=== PATIENT | male | born 1960 | race Caucasian/White ===

== ENCOUNTER 2017-04-07 14:34 | Inpatient (IN) | payer OTHER ==
[2017-04-07] VITALS (16 sets, daily range): BP systolic 70–129; BP diastolic 40–83; PULSE 40–81; RESP 16–20; TEMP 98–98.5; O2SAT 10–100
[~2017-04-07 14:34] MED LIST: CARV6.25 PO; COLL30OI3 TOP; COMMODE 3:1; LISI10 PO; NIFE1TAB85 PO; NORC10TA2 PO; PROT40TA PO; RIFA300C37 PO; SENN-29 PO; SHOWER/TUB CHAIR LG; WALKER ROLLING; WHEELCHAIR RENTAL; [UNRECOGNIZED DRUG - CODE] IV
[2017-04-07] MEDS ORDERED: ATROPINE SULFATE 1 MG/10 ML SYRINGE ONE (14:42)
[2017-04-07] MEDS ORDERED: ASPIRIN 81 MG CHEW TAB PO ONE (15:00)
[2017-04-07] MEDS ORDERED: SODIUM CHLORIDE 0.9% FLUSH 10 ML FLUSH IVF PRN (15:00)
[2017-04-07] MEDS ORDERED: SODIUM CHLOR 0.9% 1000 ML INJ 1,000 ML IV SCH (15:00)
[2017-04-07] MEDS ORDERED: LISI2.5T3 PO (15:01)
[2017-04-07] MEDS ORDERED: ASPI-110 PO (15:01)
--- NOTE | 2017-04-07 15:08 | RADRPT ---
EXAM DATE/TIME: 04/07/2017 14:59 [place] COMPARISON: CHEST SINGLE AP, March 16, 2016, 15:11. INDICATIONS : Chest pain. MEDICAL HISTORY : Sepsis SURGICAL HISTORY : None. ENCOUNTER: Initial ACUITY: 1 day PAIN SCORE: 7/10 LOCATION: Bilateral chest FINDINGS: Low lung volumes which accentuates the interstitial markings. No significant focal pleural or parench ymal opacities. Cardiomediastinal contours are within normal limits given the technique and lung volu mes. Remainder of exam is unchanged. CONCLUSION: 1. No acute cardiopulmonary disease. Chino Vaughn MD on April 07, 2017 at 15:05 Board Certified Radiologist. This report was verified electronically.
[2017-04-07] MEDS ORDERED: ATROPINE SULFATE 1 MG/10 ML SYRINGE IV PUSH ONE (15:15)
--- NOTE | 2017-04-07 15:23 | PD ---
HPI Chief Complaint: Chest Pain Time Seen by Provider: 14:45 Travel History International Travel<30 days: No Contact w/Intl Traveler<30days: No Traveled to known affect area: No History of Present Illness HPI 57-year-old man who presents to the emergency department complaining of chest pain, shortness of breath, lightheadedness, and near syncope. Patient has a history of high blood pressure. 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 He was in the NICU respiratory failure. He recovered at [facility]. He's done well since then. He's never had trouble with heart problems, CAD, or arrhythmia. He states that he was walking on the beach today when he started getting the onset of pressure-like cramping chest discomfort with lightheadedness near syncope and seeing spots. This started about an hour prior to arrival. describes very poor color and clamminess. He states he' s had 2 previous episodes in the past that resolved with rest. Prior to the onset of this episode he was feeling completely well and healthy. Denies any other new or worsening symptoms. No other complaints. 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, septic arthritis, status post cervical laminectomy an I&D of the left knee in February 2016 Influenza Vaccination: No Social History Alcohol Use: Yes (OCCASIONAL) Tobacco Use: No Allergies-Medications (Allergen,Severity, Reaction): Coded Allergies: No Known Allergies (Unverified , 04/07/17) Reported Meds & Prescriptions Reported Meds & Active Scripts Active Reported Aspirin 81 (Aspirin) 81 Mg Tabdr 81 Mg PO DAILY Lisinopril 2.5 Mg Tab 2.5 Mg PO DAILY Review of Systems Except as stated in HPI: all other systems reviewed are Neg Physical Exam Narrative GENERAL: Ill-appearing 57-year-old man, clammy pale diaphoretic HEAD: Atraumatic. Normocephalic. EYES: Pupils equal and round. No scleral icterus. No injection or drainage. ENT: No nasal bleeding or discharge. Mucous membranes pink and moist. NECK: Trachea midline. No JVD. CARDIOVASCULAR: Very slow rate, poorly audible heart sounds except occasional irregular gallop. RESPIRATORY: No accessory muscle use. Clear to auscultation. Breath sounds equal bilaterally. GASTROINTESTINAL: Abdomen soft, non-tender, nondistended. Hepatic and splenic margins not palpable. MUSCULOSKELETAL: No obvious deformities. Trace edema. NEUROLOGICAL: Awake and alert. No obvious cranial nerve deficits. Motor grossly within normal limits. Normal speech. PSYCHIATRIC: Appropriate mood and affect; insight and judgment normal. Data Data Last Documented VS Vital Signs Date Time Temp Pulse Resp B/P Pulse Ox O2 Delivery O2 Flow Rate FiO2 04/07/17 16:00 70 113/68 99 04/07/17 15:43 18 Nasal Cannula 2 04/07/17 14:40 98.0 Orders Atropine Inj (Atropine Inj) (04/07/17 14:42) Electrocardiogram (04/07/17 14:46) Ckmb (Isoenzyme) Profile (04/07/17 14:46) Complete Blood Count With Diff (04/07/17 14:46) Comprehensive Metabolic Panel (04/07/17 14:46) Magnesium (Mg) (04/07/17 14:46) Prothrombin Time / Inr (Pt) (04/07/17 14:46) Act Partial Throm Time (Ptt) (04/07/17 14:46) Troponin I (04/07/17 14:46) Chest, Single Ap (04/07/17 14:46) Ecg Monitoring (04/07/17 14:46) Bilateral Bp Monitoring (04/07/17 14:46) Iv Access Insert/Monitor (04/07/17 14:46) Oximetry (04/07/17 14:46) Oxygen Administration (04/07/17 14:46) Aspirin Chew (Aspirin Chew) (04/07/17 15:00) Sodium Chloride 0.9% Flush (Ns Flush) (04/07/17 15:00) Sodium Chlor 0.9% 1000 Ml Inj (Ns 1000 M (04/07/17 15:00) Ed Poc Ultrasound (04/07/17 ) Atropine Inj (Atropine Inj) (04/07/17 15:15) Admit Order (Ed Use Only) (04/07/17 16:40) Labs Laboratory Tests Test 04/07/17 15:35 White Blood Count 7.0 TH/MM3 Red Blood Count 4.49 MIL/MM3 Hemoglobin 14.9 GM/DL Hematocrit 42.9 % Mean Corpuscular Volume 95.5 FL Mean Corpuscular Hemoglobin 33.1 PG Mean Corpuscular Hemoglobin 34.6 % Concent Red Cell Distribution Width 12.1 % Platelet Count 146 TH/MM3 Mean Platelet Volume 8.1 FL Neutrophils (%) (Auto) 73.6 % Lymphocytes (%) (Auto) 15.2 % Monocytes (%) (Auto) 9.7 % Eosinophils (%) (Auto) 0.4 % Basophils (%) (Auto) 1.1 % Neutrophils # (Auto) 5.1 TH/MM3 Lymphocytes # (Auto) 1.1 TH/MM3 Monocytes # (Auto) 0.7 TH/MM3 Eosinophils # (Auto) 0.0 TH/MM3 Basophils # (Auto) 0.1 TH/MM3 CBC Comment DIFF FINAL Differential Comment Prothrombin Time 10.7 SEC Prothromb Time International 1.0 RATIO Ratio Activated Partial 27.8 SEC Thromboplast Time Sodium Level 144 MEQ/L Potassium Level 4.0 MEQ/L Chloride Level 110 MEQ/L Carbon Dioxide Level 25.6 MEQ/L Anion Gap 8 MEQ/L Blood Urea Nitrogen 18 MG/DL Creatinine 1.50 MG/DL Estimat Glomerular Filtration 48 ML/MIN Rate Random Glucose 111 MG/DL Calcium Level 8.5 MG/DL Magnesium Level 2.2 MG/DL Total Bilirubin 0.8 MG/DL Aspartate Amino Transf 23 U/L (AST/SGOT) Alanine Aminotransferase 30 U/L (ALT/SGPT) Alkaline Phosphatase 67 U/L Total Creatine Kinase 78 U/L Troponin I LESS THAN 0.02 NG/ML B-Type Natriuretic Peptide 30 PG/ML Total Protein 6.6 GM/DL Albumin 3.8 GM/DL [facility] Medical Decision Making Medical Screen Exam Complete: Yes Emergency Medical Condition: Yes Interpretation(s) My review of initial EKG: Sinus arrest with junctional escape rhythm at a rate of 48, QRS duration 113, no definite evidence of acute ischemia. My review of repeat EKG from 1500, status post 1 mg atropine: Normal sinus rhythm at a rate of 79, normal axis, normal intervals, no acute ischemia. Differential Diagnosis Bradycardia arrhythmia, electrolyte abnormality, cardiac dysfunction, infection , other Narrative Course Medical decision making INITIAL: Critical ill-appearing 57-year-old man presents to the emergency department with bradycardia, hypotension, ischemic chest pain as well as near syncope black spots in lightheadedness. EKG shows what appears to be sinus arrest with a junctional escape rhythm. Likely, patient responded quickly to 1 mg of atropine. His a history of hemochromatosis, as well as septic shock and critical illness about a year ago. He may have sick sinus syndrome. We'll monitor him in the emergency department. We'll check electrolytes. We'll plan on admission for cardiology evaluation. Critical Care Narrative Aggregate critical care time was 35 minutes. Time to perform other separately billable procedures was not included in the critical care time. My time did not include minutes spent treating any other patients simultaneously or on activities that did not directly contribute to the patient's treatment. The services I provided to this patient were to treat and/or prevent clinically significant deterioration that could result in: , hypotension, shock, respiratory failure, increased morbidity. I provided critical care services requiring my management, as noted below: Chart data review, documentation time, medication orders and management, vital sign assessments/reviewing monitor data, ordering and reviewing lab tests, ordering and interpreting/reviewing x-rays and diagnostic studies, care of the patient and discussion of the patient with the admitting physicians. Procedures Procedure Narrative Point of care ultrasound: Focused point of care ultrasound was performed by me to evaluate for etiology of hypotension. Focused examination of the heart reveals grossly normal ejection fraction without pericardial fluid. IVC appeared full without significant collapse. No AAA was seen. No intraperitoneal fluid was identified. Diagnosis Primary Impression: Symptomatic bradycardia Additional Impression: Junctional escape beats Admitting Information Admitting Physician Requests: Admit Maxim Villegas MD Apr 07, 2017 15:22
[2017-04-07 15:43] LABS: AUTOMATED NEUTROPHIL # 5.1 TH/MM3 (1.8-7.7); BASOPHIL # 0.1 TH/MM3 (0-0.2); BASOPHIL % 1.1 % (0.0-2.0); EOSINOPHIL % 0.4 % (0.0-4.0); HEMATOCRIT 42.9 % (39.0-51.0); HEMO FLAGS DIFF FINAL; LYMPH % 15.2 % (9.0-44.0); LYMPHOCYTE # 1.1 TH/MM3 (1.0-4.8); MEAN CELL VOLUME 95.5 FL (80.0-100.0); MEAN CORPUSCULAR HEMOGLOBIN 33.1 PG (27.0-34.0); MEAN CORPUSCULAR HGB CONC 34.6 % (32.0-36.0); MONO % 9.7 % (0.0-8.0); NEUT % 73.6 % (16.0-70.0); PLATELET COUNT 146 TH/MM3 (150-450); RED BLOOD COUNT 4.49 MIL/MM3 (4.50-5.90); RED CELL DISTRIBUTION WIDTH 12.1 % (11.6-17.2)
[2017-04-07 15:54] LABS: CHLORIDE 110 MEQ/L (98-107); SODIUM (NA) 144 MEQ/L (136-145)
[2017-04-07 15:58] LABS: ANION GAP 8 MEQ/L (5-15); BICARBONATE 25.6 MEQ/L (21.0-32.0); BLOOD UREA NITROGEN 18 MG/DL (7-18); MAGNESIUM 2.2 MG/DL (1.5-2.5)
[2017-04-07 16:00] LABS: APTT (PATIENT) 27.8 SEC (24.3-30.1); PROTHROMBIN TIME - PATIENT 10.7 SEC (9.8-11.6)
[2017-04-07 16:01] LABS: ALT (GPT) 30 U/L (12-78); AST (GOT) 23 U/L (15-37); GLOMERULAR FILTRATION RATE 48 ML/MIN (>89)
[2017-04-07 16:02] LABS: TOTAL BILIRUBIN ADULT 0.8 MG/DL (0.2-1.0)
[2017-04-07 16:04] LABS: ALKALINE PHOSPHATASE 67 U/L (45-117)
[2017-04-07 16:20] LABS: CREATINE KINASE 78 U/L (39-308)
--- NOTE | 2017-04-07 16:31 | PD ---
Physical Exam Date Seen by Provider: Apr 07, 2017 Time Seen by Provider: 16:26 Narrative This 57-year-old male had presented to the emergency department with complaint of chest pain and feeling lightheaded. He arrived with a pulse rate of 48 and blood pressure of 70/40. He was seen initially by Dr. rodgers and given atropine and fluids. He has had an excellentm response and now is feeling well without pain. His heart rate is now 80 and blood pressure 112 over 70. He has no history of heart disease. He did have a prolonged hospitalization a year ago with a spinal epidural abscess and a septic knee secondary to MRSA. There is no evidence of heart disease at the time of that admission. He does have a history of hemachromatosis. His only prescription medication is lisinopril for hypertension. Patient is feeling well now. Repeat EKG shows sinus rhythm without ST-T wave changes. His EKG on arrival did not show P waves. There is a narrow complex rhythm at a rate of 48. His troponin is normal. His electrolytes are normal. Creatinine is 1.5.. Data Data Last Documented VS Vital Signs Date Time Temp Pulse Resp B/P Pulse Ox O2 Delivery O2 Flow Rate FiO2 04/07/17 16:00 70 113/68 99 04/07/17 15:43 18 Nasal Cannula 2 04/07/17 14:40 98.0 Orders Atropine Inj (Atropine Inj) (04/07/17 14:42) Electrocardiogram (04/07/17 14:46) Ckmb (Isoenzyme) Profile (04/07/17 14:46) Complete Blood Count With Diff (04/07/17 14:46) Comprehensive Metabolic Panel (04/07/17 14:46) Magnesium (Mg) (04/07/17 14:46) Prothrombin Time / Inr (Pt) (04/07/17 14:46) Act Partial Throm Time (Ptt) (04/07/17 14:46) Troponin I (04/07/17 14:46) Chest, Single Ap (04/07/17 14:46) Ecg Monitoring (04/07/17 14:46) Bilateral Bp Monitoring (04/07/17 14:46) Iv Access Insert/Monitor (04/07/17 14:46) Oximetry (04/07/17 14:46) Oxygen Administration (04/07/17 14:46) Aspirin Chew (Aspirin Chew) (04/07/17 15:00) Sodium Chloride 0.9% Flush (Ns Flush) (04/07/17 15:00) Sodium Chlor 0.9% 1000 Ml Inj (Ns 1000 M (04/07/17 15:00) Ed Poc Ultrasound (04/07/17 ) Atropine Inj (Atropine Inj) (04/07/17 15:15) Admit Order (Ed Use Only) (04/07/17 16:40) Labs Laboratory Tests Test 04/07/17 15:35 White Blood Count 7.0 TH/MM3 Red Blood Count 4.49 MIL/MM3 Hemoglobin 14.9 GM/DL Hematocrit 42.9 % Mean Corpuscular Volume 95.5 FL Mean Corpuscular Hemoglobin 33.1 PG Mean Corpuscular Hemoglobin 34.6 % Concent Red Cell Distribution Width 12.1 % Platelet Count 146 TH/MM3 Mean Platelet Volume 8.1 FL Neutrophils (%) (Auto) 73.6 % Lymphocytes (%) (Auto) 15.2 % Monocytes (%) (Auto) 9.7 % Eosinophils (%) (Auto) 0.4 % Basophils (%) (Auto) 1.1 % Neutrophils # (Auto) 5.1 TH/MM3 Lymphocytes # (Auto) 1.1 TH/MM3 Monocytes # (Auto) 0.7 TH/MM3 Eosinophils # (Auto) 0.0 TH/MM3 Basophils # (Auto) 0.1 TH/MM3 CBC Comment DIFF FINAL Differential Comment Prothrombin Time 10.7 SEC Prothromb Time International 1.0 RATIO Ratio Activated Partial 27.8 SEC Thromboplast Time Sodium Level 144 MEQ/L Potassium Level 4.0 MEQ/L Chloride Level 110 MEQ/L Carbon Dioxide Level 25.6 MEQ/L Anion Gap 8 MEQ/L Blood Urea Nitrogen 18 MG/DL Creatinine 1.50 MG/DL Estimat Glomerular Filtration 48 ML/MIN Rate Random Glucose 111 MG/DL Calcium Level 8.5 MG/DL Magnesium Level 2.2 MG/DL Total Bilirubin 0.8 MG/DL Aspartate Amino Transf 23 U/L (AST/SGOT) Alanine Aminotransferase 30 U/L (ALT/SGPT) Alkaline Phosphatase 67 U/L Total Creatine Kinase 78 U/L Troponin I LESS THAN 0.02 NG/ML B-Type Natriuretic Peptide 30 PG/ML Total Protein 6.6 GM/DL Albumin 3.8 GM/DL [facility] Medical Record Reviewed: Yes Supervised Visit with DIPAK: No Differential Diagnosis Differential includes bradycardia, sinus arrest, hypotension Narrative Course After atropine the patient has been quite stable. He is awake and alert and is asymptomatic. Troponin is normal. His electrolytes are normal. Chest x-ray has been read as normal Diagnosis Primary Impression: Bradycardia Additional Impression: Chest pain Qualified Code: R07.9 - Chest pain, unspecified type Admitting Information Admitting Physician Requests: Admit Carlitos Estrada MD Apr 07, 2017 16:31
[2017-04-07] MEDS ORDERED: ACETAMINOPHEN 500 MG CPLT PO PRN (16:45)
[2017-04-07] MEDS ORDERED: ALPRAZolam 0.25 MG TAB PO PRN (16:45)
[2017-04-07] MEDS ORDERED: NITROGLYCERIN 0.4 MG SL 25 TABS/BTL SL PRN (16:45)
[2017-04-07] MEDS ORDERED: MORPHINE SULFATE 4 MG/ML INJ IV PRN (16:45)
[2017-04-07] MEDS ORDERED: SODIUM CHLORIDE 0.9% FLUSH 10 ML FLUSH IV FLUSH PRN (16:45)
[2017-04-07] MEDS ORDERED: ACETAMINOPHEN/HYDROcodone 325 MG/7.5 MG TAB PO PRN (16:45)
[2017-04-07] MEDS ORDERED: RESP: ALBUTEROL 2.5 MG/IPRATROPIUM 0.5 MG NEB (PRN) NEB (16:45)
[2017-04-07] MEDS: SODIUM CHLOR 0.9% 1000 ML INJ 1,000 ML IV SCH (17:17)
--- NOTE | 2017-04-07 17:46 | HHI.HP ---
[facility]Staff Admission Diagnosis BRADYCARDIA, CHEST PAIN Diagnoses: (1) Bradycardia (2) Chest pain (3) HTN (hypertension) Chief Complaint: Chest pain Travel History International Travel<30 Days: No Contact w/Intl Traveler <30 Da: No Traveled to Known Affected Are: No History of Present Illness 57 year-old male with a history of hemochromatosis, hypertension was brought to the ED for evaluation of an acute sudden onset of substernal chest pain 3 hours duration which started while patient was at the beach around 2:30 PM today and described as stabbing, pressure-like chest discomfort for without any radiation however associated with diaphoresis, nausea, lightheadedness and near syncopal episode and visual changes. ED, patient was found to be bradycardic which he was treated with atropine 1. He reports 2 prior episodes of similar chest pain with the most recent in mid-December however shorter duration and patient did not seek any medical attention at a time. His previous treadmill was normal and patient denies any prior history of cardiac disease. During my exam, patient chest discomfort for resolved. Review of Systems Except as stated in HPI: all other systems reviewed are Neg Past Family Social History Past Medical History Hemochromatosis Hypertension MSSA bacteremia 2015 Past Surgical History Cervical laminectomy and I/D of the left knee Reported Medications Aspirin 81 (Aspirin) 81 Mg Tabdr 81 Mg PO DAILY Lisinopril 2.5 Mg Tab 2.5 Mg PO DAILY Allergies: Coded Allergies: No Known Allergies (Unverified , 04/07/17) Family History Father had CVA Monitor had rheumatoid arthritis Social History Patient reports social alcohol however denies tobacco or easy drug intake Physical Exam Vital Signs Vital Signs Date Time Temp Pulse Resp B/P Pulse Ox O2 Delivery O2 Flow Rate FiO2 04/07/17 17:40 60 18 123/73 99 Room Air 04/07/17 17:38 60 99 Room Air 04/07/17 16:00 70 113/68 99 04/07/17 15:43 73 18 113/64 99 Nasal Cannula 2 04/07/17 15:24 76 04/07/17 15:07 79 18 121/59 98 Nasal Cannula 2 04/07/17 15:05 81 18 108/54 98 Nasal Cannula 2 04/07/17 14:54 76 18 99/56 99 Nasal Cannula 2 04/07/17 14:54 98 Nasal Cannula 2 04/07/17 14:50 46 85/54 04/07/17 14:45 48 18 70/50 04/07/17 14:40 98.0 40 18 70/40 98 04/07/17 14:40 40 18 98 Room Air Physical Exam GENERAL: This is a well-nourished, well-developed patient, in no apparent distress. SKIN: No rashes, ecchymoses or lesions. Cool and dry. HEAD: Atraumatic. Normocephalic. No temporal or scalp tenderness. EYES: Pupils equal round and reactive. Extraocular motions intact. No scleral icterus. No injection or drainage. ENT: Nose without bleeding, purulent drainage or septal hematoma. Throat without erythema, tonsillar hypertrophy or exudate. Uvula midline. Airway patent. NECK: Trachea midline. No JVD or lymphadenopathy. Supple, nontender, no meningeal signs. CARDIOVASCULAR: Regular rate and rhythm without murmurs, gallops, or rubs. RESPIRATORY: Clear to auscultation. Breath sounds equal bilaterally. No wheezes , rales, or rhonchi. GASTROINTESTINAL: Abdomen soft, non-tender, nondistended. No hepato-splenomegaly , or palpable masses. No guarding. MUSCULOSKELETAL: Extremities without clubbing, cyanosis, or edema. No joint tenderness, effusion, or edema noted. No calf tenderness. Negative Homans sign bilaterally. NEUROLOGICAL: Awake and alert. Cranial nerves II through XII intact. Motor and sensory grossly within normal limits. Five out of 5 muscle strength in all muscle groups. Normal speech. Laboratory Laboratory Tests Test 04/07/17 15:35 White Blood Count 7.0 Red Blood Count 4.49 Hemoglobin 14.9 Hematocrit 42.9 Mean Corpuscular Volume 95.5 Mean Corpuscular Hemoglobin 33.1 Mean Corpuscular Hemoglobin 34.6 Concent Red Cell Distribution Width 12.1 Platelet Count 146 Mean Platelet Volume 8.1 Neutrophils (%) (Auto) 73.6 Lymphocytes (%) (Auto) 15.2 Monocytes (%) (Auto) 9.7 Eosinophils (%) (Auto) 0.4 Basophils (%) (Auto) 1.1 Neutrophils # (Auto) 5.1 Lymphocytes # (Auto) 1.1 Monocytes # (Auto) 0.7 Eosinophils # (Auto) 0.0 Basophils # (Auto) 0.1 CBC Comment DIFF FINAL Differential Comment Prothrombin Time 10.7 Prothromb Time International 1.0 Ratio Activated Partial 27.8 Thromboplast Time Sodium Level 144 Potassium Level 4.0 Chloride Level 110 Carbon Dioxide Level 25.6 Anion Gap 8 Blood Urea Nitrogen 18 Creatinine 1.50 Estimat Glomerular Filtration 48 Rate Random Glucose 111 Calcium Level 8.5 Magnesium Level 2.2 Total Bilirubin 0.8 Aspartate Amino Transf 23 (AST/SGOT) Alanine Aminotransferase 30 (ALT/SGPT) Alkaline Phosphatase 67 Total Creatine Kinase 78 Troponin I LESS THAN 0.02 B-Type Natriuretic Peptide 30 Total Protein 6.6 Albumin 3.8 Result Diagram: 04/07/17 1535 04/07/17 1535 Imaging Last Impressions Chest X-Ray 04/07/17 1446 Signed Impressions: Service Date/Time: Friday, April 07, 2017 14:59 - CONCLUSION: 1. No acute cardiopulmonary disease. Chino Vaughn MD Assessment and Plan Problem List: (1) Chest pain ICD Code: R07.9 Status: Acute (2) Bradycardia ICD Code: R00.1 Status: Acute (3) Near syncope ICD Code: R55 Status: Acute (4) Thrombocytopenia ICD Code: D69.6 Status: Acute (5) Acute renal failure ICD Code: N17.9 Status: Acute (6) IFG (impaired fasting glucose) ICD Code: R73.01 Status: Acute (7) HTN (hypertension) ICD Code: I10 Status: Chronic Assessment and Plan 57-year-old man with Atypical chest pain Chest x-ray noted and review by me without any cardio pulmonary disease H&H stable in a patient with a history of hemochromatosis ACS rule out per protocol with serial cardiac enzyme and EKGs Cardiology consultation pending for evaluation for nuclear stress test Aspirin/Statin/beta asya contraindicated secondary to bradycardia/ nitroglycerin when necessary/morphine when necessary/Lovenox Check 2-D echo/lipid profile Bradycardia Episode of near sudden ? Status post treatment with atropine 1 Cardiology consultation pending and may need evaluation from [facility] ACS rule out as in above and continue with telemetry monitoring Check 2-D echo, BNP Near-syncope Treatment as in above as this appears to be a cardiac however will check EEG H&H stable in a patient with a history of hemochromatosis Mild Thrombocytopenia Continue to monitor platelet count Acute renal failure Prerenal likely secondary to dehydration Gentle IV fluid hydration and avoid all nephrotoxic drugs Monitor BUN/creatinine Mild IFG No known history of diabetes type 2, check hemoglobin A1c and treat accordingly Code Status Full code Discussed Condition With Patient, , ED physician Physician Certification 2 Midnight Certification Type: Admission for Inpatient Services Order for Inpatient Services The services are ordered in accordance with Medicare regulations or non- Medicare payer requirements, as applicable. In the case of services not specified as inpatient-only, they are appropriately provided as inpatient services in accordance with the 2-midnight benchmark. Estimated LOS (days): 2 days is the estimated time the patient will need to remain in the hospital, assuming treatment plan goals are met and no additional complications. Post-Hospital Plan: Not yet determined Problem Qualifiers (1) Chest pain: Qualified Code: R07.9 - Chest pain, unspecified type Tino Parkinson MD Apr 07, 2017 17:46
[2017-04-07] MEDS: FAMOTIDINE 20 MG TAB PO SCH (21:37)
[2017-04-07] MEDS: TEMAZEPAM 15 MG CAP PO PRN (21:37)
[2017-04-07] MEDS: SODIUM CHLORIDE 0.9% FLUSH 10 ML FLUSH IV FLUSH SCH (21:37)
[2017-04-07] MEDS: ATORVASTATIN 10 MG TAB PO SCH (21:37)
[2017-04-08] VITALS (27 sets, daily range): BP systolic 124–144; BP diastolic 68–86; PULSE 50–62; RESP 18; TEMP 98–98.7; O2SAT 99
[2017-04-08 02:59] LABS: CREATINE KINASE 63 U/L (39-308)
[2017-04-08 06:59] LABS: ALT (GPT) 42 U/L (12-78); ANION GAP 10 MEQ/L (5-15); AST (GOT) 30 U/L (15-37); BICARBONATE 22.7 MEQ/L (21.0-32.0); BLOOD UREA NITROGEN 17 MG/DL (7-18); CHLORIDE 111 MEQ/L (98-107); GLOMERULAR FILTRATION RATE 63 ML/MIN (>89); POTASSIUM 3.6 MEQ/L (3.5-5.1); SODIUM (NA) 144 MEQ/L (136-145)
[2017-04-08 07:03] LABS: ALKALINE PHOSPHATASE 77 U/L (45-117); HDL CHOLESTEROL 40.6 MG/DL (40.0-60.0); LDL CHOLESTEROL 90 MG/DL (0-99); TOTAL BILIRUBIN ADULT 0.5 MG/DL (0.2-1.0)
[2017-04-08 07:07] LABS: CREATINE KINASE 63 U/L (39-308)
[2017-04-08] MEDS ORDERED: ATENOLOL 25 MG TAB PO SCH (09:00)
[2017-04-08] MEDS: LISINOPRIL 5 MG TAB PO SCH (09:07)
[2017-04-08] MEDS: SODIUM CHLORIDE 0.9% FLUSH 10 ML FLUSH IV FLUSH SCH ×2 (09:07→20:51)
[2017-04-08] MEDS: ASPIRIN 81 MG CHEW TAB PO SCH (09:08)
[2017-04-08] MEDS: SODIUM CHLOR 0.9% 1000 ML INJ 1,000 ML IV SCH ×2 (09:08→21:36)
[2017-04-08] MEDS: FAMOTIDINE 20 MG TAB PO SCH ×2 (09:08→20:51)
--- NOTE | 2017-04-08 09:21 | HHI.PR ---
Subjective Remarks The patient was resting in bed comfortably. He said that his episode of chest pain lasted about 2 hours. He has had 2 other episodes earlier this year. He has not had a stress test recently. He said his blood pressure was really low yesterday and during an episode of chest pain months ago. Nursing was at the bedside. Objective Vitals Vital Signs Date Time Temp Pulse Resp B/P Pulse Ox O2 Delivery O2 Flow Rate FiO2 04/08/17 07:00 59 04/08/17 06:00 55 04/08/17 05:00 55 04/08/17 04:00 56 04/08/17 03:08 59 04/08/17 03:00 98.7 56 18 126/72 99 04/08/17 02:00 55 04/08/17 01:00 60 04/08/17 00:00 60 04/07/17 23:00 50 04/07/17 23:00 98.5 53 20 129/83 10 04/07/17 22:00 50 04/07/17 21:00 54 04/07/17 20:00 56 04/07/17 19:15 56 04/07/17 19:00 98.0 54 20 127/73 100 04/07/17 18:41 60 16 119/69 99 Room Air 04/07/17 17:40 60 18 123/73 99 Room Air 04/07/17 17:38 60 99 Room Air 04/07/17 16:00 70 113/68 99 04/07/17 15:43 73 18 113/64 99 Nasal Cannula 2 04/07/17 15:24 76 04/07/17 15:07 79 18 121/59 98 Nasal Cannula 2 04/07/17 15:05 81 18 108/54 98 Nasal Cannula 2 04/07/17 14:54 76 18 99/56 99 Nasal Cannula 2 04/07/17 14:54 98 Nasal Cannula 2 04/07/17 14:50 46 85/54 04/07/17 14:45 48 18 70/50 04/07/17 14:40 98.0 40 18 70/40 98 04/07/17 14:40 40 18 98 Room Air I/O 04/07/17 04/07/17 04/07/17 04/08/17 04/08/17 04/08/17 07:00 15:00 23:00 07:00 15:00 23:00 Intake Total 1163 ml Output Total 300 ml 250 ml Balance -300 ml 913 ml Intake Oral 480 ml IV Total 683 ml Output Urine Total 300 ml 250 ml # Voids 1 Result Diagram: 04/07/17 1535 04/08/17 0503 Imaging Last Impressions Chest X-Ray 04/07/17 1446 Signed Impressions: Service Date/Time: Friday, April 07, 2017 14:59 - CONCLUSION: 1. No acute cardiopulmonary disease. Chino Vaughn MD Objective Remarks GENERAL: This is a well-nourished, well-developed patient, in no apparent distress. SKIN: No rashes, ecchymoses or lesions. Cool and dry. HEAD: Atraumatic. Normocephalic. No temporal or scalp tenderness. EYES: Pupils equal round and reactive. Extraocular motions intact. No scleral icterus. No injection or drainage. ENT: Nose without bleeding, purulent drainage or septal hematoma. Throat without erythema, tonsillar hypertrophy or exudate. Uvula midline. Airway patent. NECK: Trachea midline. No JVD or lymphadenopathy. Supple, nontender, no meningeal signs. CARDIOVASCULAR: Bradycardic without murmurs, gallops, or rubs. RESPIRATORY: Clear to auscultation. Breath sounds equal bilaterally. No wheezes , rales, or rhonchi. GASTROINTESTINAL: Abdomen soft, non-tender, nondistended. No hepato-splenomegaly , or palpable masses. No guarding. MUSCULOSKELETAL: Extremities without clubbing, cyanosis, or edema. No joint tenderness, effusion, or edema noted. No calf tenderness. Negative Homans sign bilaterally. NEUROLOGICAL: Awake and alert. Cranial nerves II through XII intact. Motor and sensory grossly within normal limits. Five out of 5 muscle strength in all muscle groups. Normal speech. PSYCH: Mood and affect appropriate. Medications and IVs Current Medications Medications (Trade) Dose Ordered Sig/Kevan Route Start Time Stop Time Status Last Admin (NS Flush) 2 ml BID IV FLUSH 04/07/17 21:00 04/08/17 09:07 (NS Flush) 2 ml UNSCH PRN IV FLUSH 04/07/17 16:45 (Aspirin Chew) 162 mg DAILY PO 04/08/17 09:00 04/08/17 09:08 (Nitrostat Sl) 0.4 mg Q5M PRN SL 04/07/17 16:45 (Tylenol) 500 mg Q4H PRN PO 04/07/17 16:45 (Garner 7.5-325 Mg) 1 tab Q4H PRN PO 04/07/17 16:45 (Morphine Inj) 2 mg Q5M PRN IV 04/07/17 16:45 (Pepcid) 20 mg BID PO 04/07/17 21:00 04/08/17 09:08 (Restoril) 15 mg HS PRN PO 04/07/17 21:00 04/07/17 21:37 Alprazolam 0.25 mg 0.25 mg TID PRN PO 04/07/17 16:45 (NS 1000 ml Inj) 1,000 ml @ 70 mls/hr [id number] IV 04/07/17 17:00 04/08/17 09:08 (Lipitor) 10 mg HS PO 04/07/17 21:00 04/07/17 21:37 (Prinivil) 2.5 mg DAILY PO 04/08/17 09:00 04/08/17 09:07 A/P Problem List: (1) Chest pain ICD Code: R07.9 Status: Acute (2) Bradycardia ICD Code: R00.1 Status: Acute (3) Near syncope ICD Code: R55 Status: Acute (4) Thrombocytopenia ICD Code: D69.6 Status: Acute (5) Acute renal failure ICD Code: N17.9 Status: Acute (6) IFG (impaired fasting glucose) ICD Code: R73.01 Status: Acute (7) HTN (hypertension) ICD Code: I10 Status: Chronic Assessment and Plan Atypical chest pain Chest x-ray without any cardio pulmonary disease. Trops negative. EKG with sinus bradycardia. LDL is 90. - Cardiology consultation pending. - nitroglycerin when necessary/morphine when necessary. - Check 2-D echo. - consider stress test. Keep pt NPO until seen by cards. Bradycardia Status post treatment with atropine 1. - Cardiology consultation pending and may need evaluation from floor supervisor - echo. - telemetry. Near-syncope/ Hypotension This appears to be cardiac. He had significant hypotension on admission. Resolved with fluids and atropine. - IVFs. - check EEG. - orthostatics. - telemetry. Acute renal failure Prerenal likely secondary to dehydration. Improved with IVFs. - Gentle IV fluid hydration and avoid all nephrotoxic drugs. - Monitor BUN/creatinine. PPx: Lovenox Discharge Planning Awaiting clinical improvement Problem Qualifiers (1) Chest pain: Qualified Code: R07.9 - Chest pain, unspecified type Robles Huynh DO Apr 08, 2017 09:21
--- NOTE | 2017-04-08 11:55 | EKG ---
Date Performed: 04/07/2017 Time Performed: 14:41:10 PTAGE: 57 years EKG: Rhythm appears to be junctional rhythm MODERATE INTRAVENTRICULAR CONDUCTION DELAY ABNORMAL RHYTHM ECG NO PREVIOUS TRACING DOCTOR: Binh Webber Interpretating Date/Time 04/08/2017 11:53:33
--- NOTE | 2017-04-08 11:56 | EKG ---
Date Performed: 04/07/2017 Time Performed: 15:00:32 PTAGE: 57 years EKG: Sinus rhythm Compared to previous tracing, sinus rhythm has replaced junctional rhythm. NORMAL ECG PREVIOUS TRACING : 04/07/2017 14.41 DOCTOR: Binh Webber Interpretating Date/Time 04/08/2017 11:54:01
--- NOTE | 2017-04-08 11:56 | EKG ---
Date Performed: 04/08/2017 Time Performed: 03:48:00 PTAGE: 57 years EKG: Sinus bradycardia Since PREVIOUS TRACING , no significant change noted Normal ECG except for rate PREVIOUS TRACIN 04/07/2017 21.59 DOCTOR: Binh Webber Interpretating Date/Time 04/08/2017 11:54:36
--- NOTE | 2017-04-08 11:57 | EKG ---
Date Performed: 04/07/2017 Time Performed: 21:59:44 PTAGE: 57 years EKG: Sinus bradycardia Since PREVIOUS TRACING , no significant change noted Normal ECG except for rate PREVIOUS TRACIN 04/07/2017 15.00 DOCTOR: Binh Webber Interpretating Date/Time 04/08/2017 11:54:49
--- NOTE | 2017-04-08 12:51 | MB ---
cc: LEROY RIDER MD REASON FOR CONSULTATION Chest pain and bradycardia. HISTORY OF PRESENT ILLNESS The patient is a very pleasant 57-year-old gentleman with no prior cardiac history but who has had three episodes of epigastric chest discomfort over the last few weeks. Yesterday he was at the beats had some second-degree a and developed a more severe epigastric bubble which caused him to nearly blacked out his reports and looking cross / ashen. He was brought immediately to the emergency department where he was initially found to be in what appears to be a junctional rhythm in the 40s. He was given aspirin IV fluids which very quickly converted him to a normal sinus rhythm and brought to a sore and resolved his symptoms. He has been sinus rhythm since he is currently completely asymptomatic denying any residual chest discomfort, shortness of breath, lightheadedness, dizziness or other episodes of near syncope. PAST MEDICAL HISTORY: 1. 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 2. Hemochromatosis 3. Hypertension CURRENT MEDICATIONS 1. Aspirin once a mg daily. 2. Lisinopril 2.5 mg daily. 3. Pepcid. 4. Lipitor. ALLERGIES NO KNOWN DRUG ALLERGIES. PHYSICAL EXAMINATION VITAL SIGNS: Afebrile, pulse 59, respiratory rate 80, BP 126/72 satting 99%. IN GENERAL: In general a very pleasant well-appearing gentleman in no distress. NECK: No JVD. LUNGS: Clear auscultation bilaterally. CARDIOVASCULAR SYSTEM: Regular rhythm. No murmurs appreciated. ABDOMEN: Benign. EXTREMITIES: No edema. LABORATORY DATA Sodium 144, potassium 2.10, 111, 522.7, BUN 17, creatinine 1.18, glucose 79. Cardiac enzymes are negative x3. INR is 1.0, white count 7.0, hematocrit 42.9, platelets 146. A initial EKG showed a junctional bradycardia [address] or T-wave changes and current rhythm. Current5 telemetry and EKG shows sinus rhythm. IMPRESSION Atypical chest pain. The patient is quite active and exercises regularly and this does not elicit as chest discomfort. Thus I believe he is most likely experiencing some form of symptomatic bradycardia. However I am not yet certain that he has an indication for a pacemaker so I will plan on the followin. A nuclear stress test to exclude ischemia if significant ischemia seen he will require cardiac catheterization. 2. If his echocardiogram a nuclear stress tests are unrevealing I will plan for a loop recorder to better correlate his symptoms to any possible dysrhythmia. 3. He will be advised to stay well hydrated at all times as well. Further recommendations based on clinical course. Thank you again for opportunity to participate in this patient's care. MD DANIELLE Coker/jeremiah /10:23 AM /12:48 PM
--- NOTE | 2017-04-08 14:54 | ECHRPT ---
Indication: Chest pain, unspecified CONCLUSIONS Normal left ventricular size. Mild concentric left ventricular hypertrophy. The left ventricular systolic function is low normal with an estimated ejection fraction in the rang e of 50- 55%. No regional wall motion abnormalities are present. Left ventricular diastolic function parameters are normal. Structurally normal tricuspid valve. There is trace to normal estimated pulmonary pressures. mild tricuspid valve regurgitation. BP: 126 / 72 HR: 55 Rhythm: Sinus MEASUREMENTS (Male / Female) Normal Values Technical Quality:Poor 2D ECHO LV Diastolic Diameter PLAX 4.5 cm 4.2 - 5.9 / 3.9 - 5.3 cm LV Systolic Diameter PLAX 3.4 cm IVS Diastolic Thickness 1.1 cm 0.6 - 1.0 / 0.6 - 0.9 cm LVPW Diastolic Thickness 1.1 cm 0.6 - 1.0 / 0.6 - 0.9 cm LV Relative Wall Thickness 0.5 LVOT Diameter 2.5 cm Aortic Root Diameter 3.2 cm LA Systolic Diameter LX 3.0 cm 3.0 - 4.0 / 2.7 - 3.8 cm M-MODE AV Cusp Separation MM 2.6 cm DOPPLER AV Peak Velocity 167.0 cm/s AV Peak Gradient 11.2 mmHg AV Mean Gradient 5.0 mmHg AV Velocity Time Integral 32.5 cm LVOT Peak Velocity 79.7 cm/s LVOT Peak Gradient 2.5 mmHg LVOT Velocity Time Integral 18.3 cm LVOT Cardiac Index 2082.6 cm/minm AV Area Cont Eq vti 2.8 cm AV Area Cont Eq pk 2.3 cm Mitral E Point Velocity 93.3 cm/s Mitral A Point Velocity 73.1 cm/s Mitral E to A Ratio 1.3 LV E' Septal Velocity 8.6 cm/s Mitral E to LV E' Septal Ratio 10.9 TR Peak Velocity 252.0 cm/s TR Peak Gradient 25.4 mmHg PV Peak Velocity 69.9 cm/s PV Peak Gradient 2.0 mmHg FINDINGS LEFT VENTRICLE Normal left ventricular size. Mild concentric left ventricular hypertrophy. The left ventricular systolic function is low normal with an estimated ejection fraction in the rang e of 50- 55%. No regional wall motion abnormalities are present. Left ventricular diastolic function parameters are normal. RIGHT VENTRICLE Normal right ventricular size and systolic function. LEFT ATRIUM The left atrial size is normal. RIGHT ATRIUM The right atrial size is normal. ATRIAL SEPTUM Normal atrial septal thickness without atrial level shunting by limited color doppler interrogation. AORTA The aortic root and proximal ascending aorta are normal in size on limited imaging. MITRAL VALVE Structurally normal mitral valve. Trace mitral valve regurgitation. TRICUSPID VALVE Structurally normal tricuspid valve. There is trace to normal estimated pulmonary pressures. mild tricuspid valve regurgitation. PULMONARY VALVE No pulmonary valve regurgitation or stenosis. VESSELS The inferior vena cava is normal in size. There is greater than 50% respiratory change in dimension of the inferior vena cava (normal). PERICARDIUM There is no pericardial effusion. Jabier Gilbert MD (Electronically Signed) Final Date:08 April 2017 14:53
[2017-04-08] MEDS ORDERED: REGADENOSON INJ 0.4 MG/5 ML SYR ONE (16:17)
--- NOTE | 2017-04-08 18:26 | RADRPT ---
EXAM DATE/TIME: 04/08/2017 15:50 [facility] COMPARISON: No previous studies available for comparison. INDICATIONS : Chest pain. Angina. DOSE: 30.1 mCi Tc99m Myoview at stress. 10.3 mCi Tc99m Myoview at rest. 0.4 mg Lexiscan STRESS SYMPTOMS: Midsternal chest pain. EJECTION FRACTION: 48% MEDICAL HISTORY : Hypertension. SURGICAL HISTORY : Left knee. Cervical laminectomy. ENCOUNTER: Initial ACUITY: 1 day PAIN SCALE: 2/10 LOCATION: Bilateral chest TECHNIQUE: The patient underwent pharmacologic stress with infusion of prescribed dose. Continuous ECG tracing was monitored during stress. Gated SPECT imaging was performed after stress and conventional SPECT i maging was performed at rest. The examination was performed on a SPECT/CT scanner, both attenuation and non-corrected datasets were reviewed. FINDINGS: The gated cine loop images demonstrate mild global hypokinesis. Left ventricular ejection fraction i s calculated at 48%. The cardiac SPECT stress and rest images demonstrate a tiny fixed defect involving the cardiac apex s uggesting possible tiny LAD infarct. Clinical correlation is recommended. No reversible defects are noted to suggest ischemia. CONCLUSION: 1. Tiny focal fixed defect involving the cardiac apex suggesting small LAD infarct. Clinical correl ation is recommended. 2. Mild global hypokinesis with left ventricular ejection fraction equaling 48%. 3. No reversible defect to suggest ischemia. RISK CATEGORY: Low risk (Less than 1% annual mortality rate) Dashawn Miller MD on April 08, 2017 at 18:19 Board Certified Radiologist. This report was verified electronically.
[2017-04-08] MEDS: ATORVASTATIN 10 MG TAB PO SCH (20:51)
[2017-04-08] MEDS: TEMAZEPAM 15 MG CAP PO PRN (22:43)
[2017-04-09] VITALS (26 sets, daily range): BP systolic 130–154; BP diastolic 69–93; PULSE 49–83; RESP 18; TEMP 98.2–99.3; O2SAT 93–100
[2017-04-09 05:03] LABS: HEMATOCRIT 43.4 % (39.0-51.0); MEAN CELL VOLUME 96.4 FL (80.0-100.0); MEAN CORPUSCULAR HEMOGLOBIN 33.8 PG (27.0-34.0); MEAN CORPUSCULAR HGB CONC 35.1 % (32.0-36.0); PLATELET COUNT 141 TH/MM3 (150-450); RED CELL DISTRIBUTION WIDTH 13.3 % (11.6-17.2); REVIEW FLAG FINAL; WHITE BLOOD COUNT 5.1 TH/MM3 (4.0-11.0)
[2017-04-09 05:32] LABS: BICARBONATE 26.1 MEQ/L (21.0-32.0); MAGNESIUM 2.1 MG/DL (1.5-2.5)
[2017-04-09] MEDS: SODIUM CHLORIDE 0.9% FLUSH 10 ML FLUSH IV FLUSH SCH ×2 (09:00→20:14)
[2017-04-09] MEDS: ASPIRIN 81 MG CHEW TAB PO SCH (09:07)
[2017-04-09] MEDS: FAMOTIDINE 20 MG TAB PO SCH ×2 (09:07→20:16)
[2017-04-09] MEDS: LISINOPRIL 5 MG TAB PO SCH (09:07)
--- NOTE | 2017-04-09 09:46 | HHI.PR ---
Subjective Remarks The patient was feeling well. He had questions regarding the stress test and echocardiogram. He was wondering if his hospitalization last year but it had something to do with how his heart is acting. He has not had any lightheadedness or dizziness with ambulation. He denies any further chest pain. Breathing comfortably. Objective Vitals Vital Signs Date Time Temp Pulse Resp B/P Pulse Ox O2 Delivery O2 Flow Rate FiO2 04/09/17 06:00 56 04/09/17 05:00 52 04/09/17 04:00 52 04/09/17 03:28 98.2 57 18 130/75 98 04/09/17 03:00 52 04/09/17 02:00 56 04/09/17 01:00 56 04/09/17 00:00 52 04/08/17 23:10 98.0 53 18 139/86 99 04/08/17 23:00 54 04/08/17 22:00 56 04/08/17 21:00 56 04/08/17 20:00 56 04/08/17 19:50 98.0 62 18 144/84 99 04/08/17 19:00 50 04/08/17 18:00 62 04/08/17 17:00 61 04/08/17 16:00 62 04/08/17 16:00 98.4 56 18 138/82 99 04/08/17 15:00 51 04/08/17 14:00 55 04/08/17 13:00 55 04/08/17 12:00 98.2 56 18 124/68 99 04/08/17 12:00 56 04/08/17 11:00 56 04/08/17 10:00 56 I/O 04/08/17 04/08/17 04/08/17 04/09/17 04/09/17 04/09/17 07:00 15:00 23:00 07:00 15:00 23:00 Intake Total 1163 ml 830 ml 240 ml Output Total 250 ml 775 ml 1500 ml Balance 913 ml 55 ml -1260 ml Intake Oral 480 ml 120 ml 240 ml IV Total 683 ml 710 ml Output Urine Total 250 ml 775 ml 1500 ml # Bowel Movements 0 Result Diagram: 04/09/175 04/09/175 Imaging Last Impressions Myocardial Perfusion Scan Nuc Med 04/08/17 0000 Signed Impressions: Service Date/Time: Saturday, April 08, 2017 15:50 - CONCLUSION: 1. Tiny focal fixed defect involving the cardiac apex suggesting small LAD infarct. Clinical correlation is recommended. 2. Mild global hypokinesis with left ventricular ejection fraction equaling 48%%. 3. No reversible defect to suggest ischemia. RISK CATEGORY: Low risk (Less than 1%% annual mortality rate) Dashawn Miller MD Chest X-Ray 04/07/17 1446 Signed Impressions: Service Date/Time: Friday, April 07, 2017 14:59 - CONCLUSION: 1. No acute cardiopulmonary disease. Chino Vaughn MD Objective Remarks GENERAL: This is a well-nourished, well-developed patient, in no apparent distress. SKIN: No rashes, ecchymoses or lesions. Cool and dry. HEAD: Atraumatic. Normocephalic. No temporal or scalp tenderness. EYES: Pupils equal round and reactive. Extraocular motions intact. No scleral icterus. No injection or drainage. ENT: Nose without bleeding, purulent drainage or septal hematoma. Throat without erythema, tonsillar hypertrophy or exudate. Uvula midline. Airway patent. NECK: Trachea midline. No JVD or lymphadenopathy. Supple, nontender, no meningeal signs. CARDIOVASCULAR: Bradycardic without murmurs, gallops, or rubs. RESPIRATORY: Clear to auscultation. Breath sounds equal bilaterally. No wheezes , rales, or rhonchi. GASTROINTESTINAL: Abdomen soft, non-tender, nondistended. No hepato-splenomegaly , or palpable masses. No guarding. MUSCULOSKELETAL: Extremities without clubbing, cyanosis, or edema. No joint tenderness, effusion, or edema noted. No calf tenderness. Negative Homans sign bilaterally. NEUROLOGICAL: Awake and alert. Cranial nerves II through XII intact. Motor and sensory grossly within normal limits. Five out of 5 muscle strength in all muscle groups. Normal speech. PSYCH: Mood and affect appropriate. Medications and IVs Current Medications Medications (Trade) Dose Ordered Sig/Kevan Route Start Time Stop Time Status Last Admin (NS Flush) 2 ml BID IV FLUSH 04/07/17 21:00 04/08/17 20:51 (NS Flush) 2 ml UNSCH PRN IV FLUSH 04/07/17 16:45 (Aspirin Chew) 162 mg DAILY PO 04/08/17 09:00 04/09/17 09:07 (Nitrostat Sl) 0.4 mg Q5M PRN SL 04/07/17 16:45 (Tylenol) 500 mg Q4H PRN PO 04/07/17 16:45 (Holt 7.5-325 Mg) 1 tab Q4H PRN PO 04/07/17 16:45 (Morphine Inj) 2 mg Q5M PRN IV 04/07/17 16:45 (Pepcid) 20 mg BID PO 04/07/17 21:00 04/09/17 09:07 (Restoril) 15 mg HS PRN PO 04/07/17 21:00 04/08/17 22:43 Alprazolam 0.25 mg 0.25 mg TID PRN PO 04/07/17 16:45 (NS 1000 ml Inj) 1,000 ml @ 70 mls/hr [id number] IV 04/07/17 17:00 04/08/17 21:36 (Lipitor) 10 mg HS PO 04/07/17 21:00 04/08/17 20:51 (Prinivil) 2.5 mg DAILY PO 04/08/17 09:00 04/09/17 09:07 A/P Problem List: (1) Chest pain ICD Code: R07.9 Status: Acute (2) Bradycardia ICD Code: R00.1 Status: Acute (3) Near syncope ICD Code: R55 Status: Acute (4) Thrombocytopenia ICD Code: D69.6 Status: Acute (5) Acute renal failure ICD Code: N17.9 Status: Acute (6) IFG (impaired fasting glucose) ICD Code: R73.01 Status: Acute (7) HTN (hypertension) ICD Code: I10 Status: Chronic Assessment and Plan Atypical chest pain Chest x-ray without any cardio pulmonary disease. Trops negative. EKG with sinus bradycardia. LDL is 90. Resolved. Stress test negative for reversible defect. Echo with EF 50-55%. - nitroglycerin when necessary/morphine when necessary. - Check 2-D echo. - consider stress test. Keep pt NPO until seen by cards. Bradycardia Has had associated near-syncope. Status post treatment with atropine 1. HR stable in the 50s. Feeling well. Cardiology consult appreciated. - likely loop recorder to be placed per cardiology. - telemetry. Near-syncope/ Hypotension This appears to be cardiac. He had significant hypotension on admission. Resolved with fluids and atropine. - IVFs. - check EEG. - orthostatics. - telemetry. Acute renal failure Prerenal likely secondary to dehydration. Improved with IVFs. - Gentle IV fluid hydration and avoid all nephrotoxic drugs. - Monitor BUN/creatinine. Resolved. PPx: Lovenox Discharge Planning Awaiting cardiology clearance Problem Qualifiers (1) Chest pain: Qualified Code: R07.9 - Chest pain, unspecified type Robles Huynh DO Apr 09, 2017 09:46
--- NOTE | 2017-04-09 10:40 | PD.CARD.PN ---
Subjective Subjective Remarks Pt feels well, no sx. Objective Medications Administered Medications Medications (Trade) Dose Ordered Sig/Kevan Route PRN Reason Start Time Stop Time Status Last Admin Dose Admin Sodium Chloride (NS Flush) 2 ml BID IV FLUSH 04/07/17 21:00 04/08/17 20:51 Aspirin (Aspirin Chew) 162 mg DAILY PO 04/08/17 09:00 04/09/17 09:07 Famotidine (Pepcid) 20 mg BID PO 04/07/17 21:00 04/09/17 09:07 Temazepam (Restoril) 15 mg HS PRN PO INSOMNIA 04/07/17 21:00 04/08/17 22:43 Atorvastatin Calcium (Lipitor) 10 mg HS PO 04/07/17 21:00 04/08/17 20:51 Lisinopril (Prinivil) 2.5 mg DAILY PO 04/08/17 09:00 04/09/17 09:07 Vital Signs / I&O Vital Signs Date Time Temp Pulse Resp B/P Pulse Ox O2 Delivery O2 Flow Rate FiO2 04/09/17 06:00 56 04/09/17 05:00 52 04/09/17 04:00 52 04/09/17 03:28 98.2 57 18 130/75 98 04/09/17 03:00 52 04/09/17 02:00 56 04/09/17 01:00 56 04/09/17 00:00 52 04/08/17 23:10 98.0 53 18 139/86 99 04/08/17 23:00 54 04/08/17 22:00 56 04/08/17 21:00 56 04/08/17 20:00 56 04/08/17 19:50 98.0 62 18 144/84 99 04/08/17 19:00 50 04/08/17 18:00 62 04/08/17 17:00 61 04/08/17 16:00 62 04/08/17 16:00 98.4 56 18 138/82 99 04/08/17 15:00 51 04/08/17 14:00 55 04/08/17 13:00 55 04/08/17 12:00 98.2 56 18 124/68 99 04/08/17 12:00 56 04/08/17 11:00 56 I/O 04/08/17 04/08/17 04/08/17 04/09/17 04/09/17 04/09/17 07:00 15:00 23:00 07:00 15:00 23:00 Intake Total 1163 ml 830 ml 240 ml Output Total 250 ml 775 ml 1500 ml Balance 913 ml 55 ml -1260 ml Intake Oral 480 ml 120 ml 240 ml IV Total 683 ml 710 ml Output Urine Total 250 ml 775 ml 1500 ml # Bowel Movements 0 Physical Exam GENERAL: This is a well-nourished, well-developed patient, in no apparent distress. CARDIOVASCULAR: Regular rate and rhythm without murmurs, gallops, or rubs. RESPIRATORY: Clear to auscultation. Breath sounds equal bilaterally. No wheezes , rales, or rhonchi. GASTROINTESTINAL: Abdomen soft, non-tender, nondistended. Normal active bowel sounds MUSCULOSKELETAL: Extremities without clubbing, cyanosis, or edema. NEURO: Alert & Oriented x4 to person, place, time, situation. Moves all ext x4 Laboratory Laboratory Tests Test 04/09/17 03:15 White Blood Count 5.1 TH/MM3 Red Blood Count 4.50 MIL/MM3 Hemoglobin 15.2 GM/DL Hematocrit 43.4 % Mean Corpuscular Volume 96.4 FL Mean Corpuscular Hemoglobin 33.8 PG Mean Corpuscular Hemoglobin 35.1 % Concent Red Cell Distribution Width 13.3 % Platelet Count 141 TH/MM3 Mean Platelet Volume 9.1 FL Sodium Level 144 MEQ/L Potassium Level 4.0 MEQ/L Chloride Level 110 MEQ/L Carbon Dioxide Level 26.1 MEQ/L Anion Gap 8 MEQ/L Blood Urea Nitrogen 14 MG/DL Creatinine 1.09 MG/DL Estimat Glomerular Filtration 69 ML/MIN Rate Random Glucose 83 MG/DL Calcium Level 8.3 MG/DL Magnesium Level 2.1 MG/DL Imaging Last Impressions Myocardial Perfusion Scan Nuc Med 04/08/17 0000 Signed Impressions: Service Date/Time: Saturday, April 08, 2017 15:50 - CONCLUSION: 1. Tiny focal fixed defect involving the cardiac apex suggesting small LAD infarct. Clinical correlation is recommended. 2. Mild global hypokinesis with left ventricular ejection fraction equaling 48%%. 3. No reversible defect to suggest ischemia. RISK CATEGORY: Low risk (Less than 1%% annual mortality rate) Dashawn Miller MD Chest X-Ray 04/07/17 1446 Signed Impressions: Service Date/Time: Friday, April 07, 2017 14:59 - CONCLUSION: 1. No acute cardiopulmonary disease. Chino Vaughn MD Assessment and Plan Problem List: (1) Near syncope Assessment and Plan: Given ivana findings will plan for loop recorder to try to correlate with patient's sx (2) Symptomatic bradycardia (3) Junctional rhythm (4) Chest pain Assessment and Plan: none further, s/p non-ischemic nuc stress. Assessment and Plan plan for loop in the am Problem Qualifiers (1) Chest pain: Qualified Code: R07.9 - Chest pain, unspecified type Jabier Gilbert MD Apr 09, 2017 10:40
[2017-04-09 13:19] LABS: HEMOGLOBIN A1a 1.2 %; HEMOGLOBIN A1b 1.2 %; HEMOGLOBIN Ao 88.2 %; HEMOGLOBIN LA1C 1.6 %; HEMOGLOBIN P3 3.1 %
[2017-04-09] MEDS: ATORVASTATIN 10 MG TAB PO SCH (20:16)
[2017-04-09] MEDS: TEMAZEPAM 15 MG CAP PO PRN (22:40)
[2017-04-09] MEDS ORDERED: POVIDONE IODINE 5% (ANTISEPSIS KIT) 4 APPLICATIONS EACH NARE PRN (23:15)
[2017-04-09] MEDS ORDERED: LACTATED RINGER'S 1000 ML IV PRN (23:15)
[2017-04-09] MEDS ORDERED: CHLORHEXIDINE GLUCONATE 2 % 1 PACK (2 CLOTHS) TOPICAL PRN (23:15)
[2017-04-09] MEDS ORDERED: SODIUM CHLORID 0.9% 500 ML IV PRN (23:15)
[2017-04-09] MEDS ORDERED: INSULIN HUMAN REGULAR 1,000 UNITS/10 ML VIAL SQ PRN (23:15)
[2017-04-09] MEDS ORDERED: METOPROLOL TARTRATE 25 MG TAB PO PRN (23:15)
[2017-04-10] VITALS (14 sets, daily range): BP systolic 126–132; BP diastolic 76–80; PULSE 47–54; RESP 18; TEMP 97.3–98.2; O2SAT 98–100
[2017-04-10] MEDS ORDERED: ceFAZolin INJ 1,000 MG VIAL ONE (08:25)
[2017-04-10] MEDS ORDERED: MIDAZOLAM HCL 2 MG/2 ML VIAL ONE (08:25)
--- NOTE | 2017-04-10 08:54 | PD.CARD.PN ---
Subjective Subjective Remarks Pt has done well, no complaints. Objective Medications Administered Medications Medications (Trade) Dose Ordered Sig/Kevan Route PRN Reason Start Time Stop Time Status Last Admin Dose Admin Sodium Chloride (NS Flush) 2 ml BID IV FLUSH 04/07/17 21:00 04/08/17 20:51 Aspirin (Aspirin Chew) 162 mg DAILY PO 04/08/17 09:00 04/09/17 09:07 Famotidine (Pepcid) 20 mg BID PO 04/07/17 21:00 04/09/17 20:16 Temazepam (Restoril) 15 mg HS PRN PO INSOMNIA 04/07/17 21:00 04/09/17 22:40 Atorvastatin Calcium (Lipitor) 10 mg HS PO 04/07/17 21:00 04/09/17 20:16 Lisinopril (Prinivil) 2.5 mg DAILY PO 04/08/17 09:00 04/09/17 09:07 Vital Signs / I&O Vital Signs Date Time Temp Pulse Resp B/P Pulse Ox O2 Delivery O2 Flow Rate FiO2 04/10/17 06:03 47 04/10/17 05:14 49 04/10/17 04:07 49 04/10/17 03:37 49 04/10/17 03:00 97.3 53 130/76 98 04/10/17 02:20 52 04/10/17 01:00 52 04/10/17 00:00 50 04/09/17 23:31 56 04/09/17 23:14 98.3 56 152/88 97 04/09/17 22:00 52 04/09/17 21:00 54 04/09/17 20:00 54 04/09/17 19:00 58 04/09/17 19:00 99.0 57 154/87 100 04/09/17 18:00 60 04/09/17 17:00 62 04/09/17 16:00 56 04/09/17 15:34 99.3 83 18 152/86 93 04/09/17 15:00 50 04/09/17 13:00 50 04/09/17 12:00 98.9 53 18 142/82 100 137/83 144/93 04/09/17 12:00 56 04/09/17 11:00 58 04/09/17 10:00 52 04/09/17 09:00 54 I/O 04/09/17 04/09/17 04/09/17 04/10/17 04/10/17 04/10/17 07:00 15:00 23:00 07:00 15:00 23:00 Intake Total 240 ml 880 ml 240 ml Output Total 1500 ml 600 ml Balance -1260 ml 280 ml 240 ml Intake Oral 240 ml 480 ml 240 ml IV Total 400 ml Output Urine Total 1500 ml 600 ml # Voids 3 3 # Bowel Movements 1 Physical Exam GENERAL: This is a well-nourished, well-developed patient, in no apparent distress. CARDIOVASCULAR: Regular rate and rhythm without murmurs, gallops, or rubs. RESPIRATORY: Clear to auscultation. Breath sounds equal bilaterally. No wheezes , rales, or rhonchi. GASTROINTESTINAL: Abdomen soft, non-tender, nondistended. Normal active bowel sounds MUSCULOSKELETAL: Extremities without clubbing, cyanosis, or edema. NEURO: Alert & Oriented x4 to person, place, time, situation. Moves all ext x4 Imaging Last Impressions Myocardial Perfusion Scan Nuc Med 04/08/17 0000 Signed Impressions: Service Date/Time: Saturday, April 08, 2017 15:50 - CONCLUSION: 1. Tiny focal fixed defect involving the cardiac apex suggesting small LAD infarct. Clinical correlation is recommended. 2. Mild global hypokinesis with left ventricular ejection fraction equaling 48%%. 3. No reversible defect to suggest ischemia. RISK CATEGORY: Low risk (Less than 1%% annual mortality rate) Dashawn Miller MD Chest X-Ray 04/07/17 1446 Signed Impressions: Service Date/Time: Friday, April 07, 2017 14:59 - CONCLUSION: 1. No acute cardiopulmonary disease. Chino Vaughn MD Assessment and Plan Problem List: (1) Near syncope Assessment and Plan: Given ivana findings loop recorder placed to try to correlate with patient's sx (2) Symptomatic bradycardia (3) Junctional rhythm (4) Chest pain Assessment and Plan: none further, s/p non-ischemic nuc stress. Assessment and Plan ok to d/c home, f/u with me in the office. Problem Qualifiers (1) Chest pain: Qualified Code: R07.9 - Chest pain, unspecified type Jabier Gilbert MD Apr 10, 2017 08:54
[2017-04-10] MEDS: ASPIRIN 81 MG CHEW TAB PO SCH (10:47)
[2017-04-10] MEDS: LISINOPRIL 5 MG TAB PO SCH (10:48)
[2017-04-10] MEDS: FAMOTIDINE 20 MG TAB PO SCH (10:48)
--- NOTE | 2017-04-10 10:51 | MA ---
cc: JABIER GILBERT MD DATE: 04/10/2017 INDICATION Syncope and bradycardia. PERFORMING PHYSICIAN Dr. Jabier Gilbert PROCEDURES PERFORMED 1. 15 minutes of moderate IV sedation. 2. Loop recorder insertion. DESCRIPTION OF PROCEDURE After informed consent was obtained the patient was prepped and draped in a standard sterile technique. 4 mg of Versed and 50 mcg of fentanyl was used for moderate IV sedation. Next, a [employer] LINQ loop recorder was inserted subcutaneously to the left chest. The patient tolerated the procedure well without any apparent complications. The initial R-wave was 0.54 millivolts. Tachybrady pause and atrial fibrillation detection was enabled. The serial number was [id number]. Jabier Gilbert MD DANIELLE/BT /9:02 AM /10:51 AM
[2017-04-10] MEDS ORDERED: ASPI81CH25 PO (12:08)
[2017-04-10] MEDS ORDERED: LIPI10TA PO (12:08)
--- NOTE | 2017-04-10 12:10 | HHI.DS ---
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 ED, patient was found to be bradycardic which he was treated with atropine 1. He reports 2 prior episodes of similar chest pain with the most recent in mid-December however shorter duration and patient did not seek any medical attention at a time. His previous treadmill was normal and patient denies any prior history of cardiac disease. During my exam, patient chest discomfort for resolved. CBC/BMP: 04/09/17 0315 04/09/17 0315 Significant Findings Laboratory Tests Test 04/07/17 04/08/17 04/08/17 04/09/17 15:35 01:09 05:03 03:15 Red Blood Count 4.49 MIL/MM3 (4.50-5.90) Platelet Count 146 TH/MM3 141 TH/MM3 (150-450) (150-450) Neutrophils (%) (Auto) 73.6 % (16.0-70.0) Monocytes (%) (Auto) 9.7 % (0.0-8.0) Chloride Level 110 MEQ/L 111 MEQ/L 110 MEQ/L (98-107) (98-107) (98-107) Creatinine 1.50 MG/DL (0.60-1.30) Estimat Glomerular Filtration 48 ML/MIN (>89) 63 ML/MIN (>89) 69 ML/MIN (>89) Rate Random Glucose 111 MG/DL (74-106) Troponin I LESS THAN 0.02 LESS THAN 0.02 LESS THAN 0.02 NG/ML NG/ML NG/ML (0.02-0.05) (0.02-0.05) (0.02-0.05) Calcium Level 8.3 MG/DL 8.3 MG/DL (8.5-10.1) (8.5-10.1) Total Protein 6.3 GM/DL (6.4-8.2) Imaging Last Impressions Myocardial Perfusion Scan Nuc Med 04/08/17 0000 Signed Impressions: Service Date/Time: Saturday, April 08, 2017 15:50 - CONCLUSION: 1. Tiny focal fixed defect involving the cardiac apex suggesting small LAD infarct. Clinical correlation is recommended. 2. Mild global hypokinesis with left ventricular ejection fraction equaling 48%%. 3. No reversible defect to suggest ischemia. RISK CATEGORY: Low risk (Less than 1%% annual mortality rate) Dashawn Miller MD Chest X-Ray 04/07/17 1446 Signed Impressions: Service Date/Time: Friday, April 07, 2017 14:59 - CONCLUSION: 1. No acute cardiopulmonary disease. Chino Vaughn MD PE at Discharge GENERAL: This is a well-nourished, well-developed patient, in no apparent distress. SKIN: No rashes, ecchymoses or lesions. Cool and dry. HEAD: Atraumatic. Normocephalic. No temporal or scalp tenderness. EYES: Pupils equal round and reactive. Extraocular motions intact. No scleral icterus. No injection or drainage. ENT: Nose without bleeding, purulent drainage or septal hematoma. Throat without erythema, tonsillar hypertrophy or exudate. Uvula midline. Airway patent. NECK: Trachea midline. No JVD or lymphadenopathy. Supple, nontender, no meningeal signs. CARDIOVASCULAR: Bradycardic without murmurs, gallops, or rubs. RESPIRATORY: Clear to auscultation. Breath sounds equal bilaterally. No wheezes , rales, or rhonchi. GASTROINTESTINAL: Abdomen soft, non-tender, nondistended. No hepato-splenomegaly , or palpable masses. No guarding. MUSCULOSKELETAL: Extremities without clubbing, cyanosis, or edema. No joint tenderness, effusion, or edema noted. No calf tenderness. Negative Homans sign bilaterally. NEUROLOGICAL: Awake and alert. Cranial nerves II through XII intact. Motor and sensory grossly within normal limits. Five out of 5 muscle strength in all muscle groups. Normal speech. PSYCH: Mood and affect appropriate. Hospital Course Atypical chest pain Chest x-ray without any cardio pulmonary disease. Trops negative. EKG with sinus bradycardia. LDL is 90. Resolved. Stress test negative for reversible defect. Echo with EF 50-55%. - nitroglycerin when necessary/morphine when necessary. - Check 2-D echo. - consider stress test. Keep pt NPO until seen by cards. Bradycardia Has had associated near-syncope. Status post treatment with atropine 1. HR stable in the 50s. Feeling well. Cardiology consult appreciated. - likely loop recorder to be placed per cardiology. - telemetry. Near-syncope/ Hypotension This appears to be cardiac. He had significant hypotension on admission. Resolved with fluids and atropine. - IVFs. - check EEG. - orthostatics. - telemetry. Acute renal failure Prerenal likely secondary to dehydration. Improved with IVFs. - Gentle IV fluid hydration and avoid all nephrotoxic drugs. - Monitor BUN/creatinine. Resolved. PPx: Lovenox Pt Condition on Discharge: Stable Discharge Disposition: Discharge Home Discharge Instructions DIET: Follow Instructions for: Heart Healthy Diet Activities you can perform: See Additionl Instruction Other Activity Instructions: as directed by Welfare Visitor. Bhakti Grimaldo MD Apr 10, 2017 12:10
--- NOTE | 2017-04-10 12:10 | HHI.DCPOC ---
Discharge Care Plan Diagnosis: (1) Tachy-ivana syndrome Goals to Promote Your Health * To prevent worsening of your condition and complications * To maintain your health at the optimal level Directions to Meet Your Goals Take your medications as prescribed Follow your dietary instruction Follow activity as directed Keep your appointments as scheduled Take your immunizations and boosters as scheduled If your symptoms worsen call your PCP, if no PCP go to Urgent Care Center or Emergency Room Smoking is Dangerous to Your Health. Avoid second hand smoke Call the 24-hour hour crisis hotline for domestic abuse at Bhakti Grimaldo MD Apr 10, 2017 12:10
--- NOTE | 2017-04-11 09:55 | MG ---
cc: KARRIE WILLAMS M.D., ERIC Lab No: Date:04/10/2017 Age: 57 Sex: M Race: An EEG was obtained on this 57-year-old patient being awake and asleep. History of syncope and chest pain. PROCEDURE: This EEG shows a lot of 10 per second alpha rhythms posteriorly. There is low amplitude beta rhythms frontally. Throughout the study there is some higher amplitude background rhythms on the left than right with possible more of the slower activity on the left more than right. There is awake and asleep. There is some theta activity and there is no change with his photic stimulation. INTERPRETATION Abnormal EEG because of mild slowing, questionably left more than right. This EEG raise the possibility of left hemisphere structural abnormality. No epileptiform features present. MD RAIJV Anaya/ /8:55 PM /9:55 AM
== END 2017-04-10 12:55 | disposition home or self-care (01) | DRG 261 ==
LOC: PHED 14:34 → PHEDA 16:42 → HCIN 19:45
PROVIDERS: ADMIT Family Medicine; ATTEND Family Medicine
PROC: 0JH632Z Insertion of Monitoring Device into Chest Subcutaneous Tissue and Fascia, Percutaneous Approach (ICD-10-PCS; principal; 2017-04-10)
DX: R00.1 Bradycardia, unspecified (principal); N17.9 Acute kidney failure, unspecified; D69.6 Thrombocytopenia, unspecified; I10 Essential (primary) hypertension; E86.0 Dehydration; R55 Syncope and collapse; R73.01 Impaired fasting glucose; R07.89 Other chest pain
CPT/HCPCS: 33282; 71010; 78452; 80048; 80053; 80061; 82550; 83036; 83735; 83880; 84484; 85025; 85027; 85610; 85730; 93005; 93017; 93306; 95819; A9502; C1764; J0461; J0690; J2250; J2785; J3010; J7030

== ENCOUNTER 2017-04-10 14:36 | Emergency (ER) | payer OTHER ==
[~2017-04-10 14:36] MED LIST changes: +ASPI-110 PO; +ASPI81CH25 PO; -CARV6.25 PO; -COLL30OI3 TOP; -COMMODE 3:1; +LIPI10TA PO; -LISI10 PO; +LISI2.5T3 PO; -NIFE1TAB85 PO; -NORC10TA2 PO; -PROT40TA PO; -RIFA300C37 PO; -SENN-29 PO; -SHOWER/TUB CHAIR LG; -WALKER ROLLING; -WHEELCHAIR RENTAL; -[UNRECOGNIZED DRUG - CODE] IV
[2017-04-10 14:41] VITALS: BP 137/75; PULSE 62; RESP 18; TEMP 97.6; O2SAT 100
[2017-04-10] MEDS ORDERED: LIDOCAINE 1%/EPINEPHrine 1:100,000 SOLN 20 ML VIAL INFIL ONE (14:45)
--- NOTE | 2017-04-10 15:07 | PD ---
HPI Chief Complaint: Bleeding Time Seen by Provider: 14:44 Travel History International Travel<30 days: No Contact w/Intl Traveler<30days: No Traveled to known affect area: No History of Present Illness HPI 57-year-old male presents to the ED for evaluation of bleeding. Patient underwent insertion of a loop recorder secondary to bradycardia this morning. Discharged from the hospital around 1 PM. He states that the wound has bled through a dressing. Denies weakness or dizziness. Take a baby aspirin daily. PFSH Past Medical History Arthritis: Yes (left knee) Asthma: No Autoimmune Disease: No Anxiety: No Depression: No Heart Rhythm Problems: No Cancer: No Cardiovascular Problems: Yes High Cholesterol: No Chemotherapy: No Chest Pain: No Congestive Heart Failure: No COPD: No Cerebrovascular Accident: No Diabetes: No Diminished Hearing: No Endocrine: No GERD: Yes (occasional ) Genitourinary: No Hiatal Hernia: No Hypertension: Yes Immune Disorder: No Implanted Vascular Access Dvce: Yes (PICC LINE) Kidney Stones: No Musculoskeletal: Yes Neurologic: Yes Psychiatric: No Reproductive: No Respiratory: Yes Migraines: No Radiation Therapy: No Renal Failure: No Seizures: No Sickle Cell Disease: No Sleep Apnea: No Thyroid Disease: No Ulcer: No Past Surgical History Abdominal Surgery: No AICD: No Arteriovenous Shunt: No Cardiac Surgery: Yes (ILR PLACED 04/10/17) Ear Surgery: No Endocrine Surgery: No Eye Surgery: No Genitourinary Surgery: No Insulin Pump: No Joint Replacement: No Oral Surgery: No Pacemaker: No Thoracic Surgery: No Other Surgery: Yes (cervical laminectomy) Social History Alcohol Use: Yes (OCCASIONAL) Tobacco Use: No Substance Use: No Allergies-Medications (Allergen,Severity, Reaction): Coded Allergies: No Known Allergies (Unverified , 04/07/17) Reported Meds & Prescriptions Reported Meds & Active Scripts Active Lipitor (Atorvastatin Calcium) 10 Mg Tab 10 Mg PO HS Reported Aspirin 81 (Aspirin) 81 Mg Tabdr 81 Mg PO DAILY Lisinopril 2.5 Mg Tab 2.5 Mg PO DAILY Review of Systems Except as stated in HPI: all other systems reviewed are Neg Physical Exam Narrative GENERAL: Well-nourished, well-developed pleasant white male in no acute distress. SKIN: Focused skin assessment warm/dry. There is a 0.25 cm wound on the anterior chest with mild to moderate active bleeding. HEAD: Normocephalic. EYES: No scleral icterus. No injection or drainage. NECK: Supple, trachea midline. No JVD or lymphadenopathy. CARDIOVASCULAR: Regular rate and rhythm without murmurs, gallops, or rubs. RESPIRATORY: Breath sounds equal bilaterally. No accessory muscle use. GASTROINTESTINAL: Abdomen soft, non-tender, nondistended. MUSCULOSKELETAL: No cyanosis, or edema. BACK: Nontender without obvious deformity. No CVA tenderness. Data Data Last Documented VS Vital Signs Date Time Temp Pulse Resp B/P Pulse Ox O2 Delivery O2 Flow Rate FiO2 04/10/17 14:45 62 18 100 Room Air 04/10/17 14:41 97.6 137/75 Orders Lidocai-Epi 1%-1:100,000 Inj (Xylocaine- (04/10/17 14:45) MDM Medical Decision Making Medical Screen Exam Complete: Yes Emergency Medical Condition: Yes Differential Diagnosis Postoperative bleeding versus wound recheck versus hemorrhage versus other Narrative Course 57-year-old male presents to the ED for evaluation of bleeding. Patient underwent insertion of a loop recorder secondary to bradycardia this morning. Discharged from the hospital around 1 PM. He states that the wound has bled through a dressing. Denies weakness or dizziness. Take a baby aspirin daily. Vitals reviewed. Physical exam reveals a 0.25 cm surgical incision in the mid chest. There is mild to moderate active bleeding. I held pressure for 5 minutes with no resolution of the bleed. I removed the Steri-Strips and closed the wound with Dermabond. This did resolve the bleeding. Band-Aid was applied. Patient was cautioned not to overexert himself, hold steady pressure for 45 minutes if bleeding resumes, return to the ED as necessary, otherwise follow-up with bobbin trucker. He indicated understanding of instructions and is agreeable to the care plan. He is stable and discharged home. Diagnosis Primary Impression: Postoperative hemorrhage of skin following non-dermatologic procedure Referrals: Lead Qa Analyst Additional Instructions: Keep wound clean, dry and covered. Should bleeding resume hold steady pressure for 4-5 minutes to stop the bleeding. If bleeding continues return to the ED for further evaluation. Follow-up with the bobbin trucker as planned. Disposition: 01 DISCHARGE HOME Condition: Stable Ximena Rogers Apr 10, 2017 15:07
== END 2017-04-10 15:48 | disposition home or self-care (01) ==
LOC: NEPD 14:36
DX: L76.22 Postprocedural hemorrhage of skin and subcutaneous tissue following other procedure (principal); I10 Essential (primary) hypertension; K21.9 Gastro-esophageal reflux disease without esophagitis; M13.862 Other specified arthritis, left knee; Z79.82 Long term (current) use of aspirin; Z79.899 Other long term (current) drug therapy
CPT/HCPCS: 99281

== ENCOUNTER 2017-09-04 06:03 | Day surgery (SDC) | payer OTHER ==
[~2017-09-04] VITALS: Ht 182.9 cm; Wt 107.7 kg
[2017-09-04] VITALS (10 sets, daily range): BP systolic 121–139; BP diastolic 73–96; PULSE 60–70; RESP 16–19; TEMP 97.9–98.4; O2SAT 98–100
[~2017-09-04 06:03] MED LIST changes: -ASPI-110 PO; +ASPI1TAB57 PO; -ASPI81CH25 PO
[2017-09-04] MEDS ORDERED: CHLORHEXIDINE GLUCONATE 2 % 1 PACK (2 CLOTHS) TOPICAL SCH (06:45)
[2017-09-04] MEDS ORDERED: MUPIROCIN 2% OINT 1 APPLIC/GM SYR NASAL SCH (06:45)
[2017-09-04] MEDS ORDERED: POVIDONE IODINE 5% (ANTISEPSIS KIT) 4 APPLICATIONS EACH NARE PRN (06:45)
[2017-09-04] MEDS ORDERED: LACTATED RINGER'S 1000 ML IV PRN (06:45)
[2017-09-04] MEDS ORDERED: CHLORHEXIDINE GLUCONATE 2 % 1 PACK (2 CLOTHS) TOPICAL PRN (06:45)
[2017-09-04] MEDS ORDERED: POVIDONE IODINE 5% (ANTISEPSIS KIT) 4 APPLICATIONS EACH NARE SCH (06:45)
[2017-09-04] MEDS ORDERED: VANCOMYCIN 1000 MG/NS 250 ML IV SCH ×2 (06:45)
[2017-09-04] MEDS ORDERED: ceFAZolin 2 GM PREMIX 50 ML IV SCH ×2 (06:45→15:00)
[2017-09-04] MEDS ORDERED: LORazepam 1 MG TAB SL SCH (06:45)
[2017-09-04] MEDS ORDERED: NS 1000 ML IV SCH (06:45)
[2017-09-04] MEDS ORDERED: GLUC500T4 PO (06:54)
[2017-09-04] MEDS ORDERED: DULO1CAP3 PO (06:54)
[2017-09-04] MEDS ORDERED: SULF1TAB23 PO (06:54)
[2017-09-04] MEDS ORDERED: VITATAB43 PO (06:54)
[2017-09-04] MEDS ORDERED: MULTTAB67 PO (06:54)
[2017-09-04] MEDS ORDERED: LISI-519 PO (06:54)
[2017-09-04 07:00] LABS: AUTOMATED NEUTROPHIL # 1.8 TH/MM3 (1.8-7.7); EOSINOPHIL # 0.1 TH/MM3 (0-0.4); EOSINOPHIL % 1.6 % (0.0-4.0); HEMO FLAGS DIFF FINAL; LYMPH % 37.2 % (9.0-44.0); LYMPHOCYTE # 1.4 TH/MM3 (1.0-4.8); MEAN CELL VOLUME 97.1 FL (80.0-100.0); MEAN CORPUSCULAR HEMOGLOBIN 33.8 PG (27.0-34.0); MEAN CORPUSCULAR HGB CONC 34.8 % (32.0-36.0); NEUT % 47.2 % (16.0-70.0); PLATELET COUNT 144 TH/MM3 (150-450); RED BLOOD COUNT 4.33 MIL/MM3 (4.50-5.90); RED CELL DISTRIBUTION WIDTH 12.3 % (11.6-17.2); WHITE BLOOD COUNT 3.7 TH/MM3 (4.0-11.0)
[2017-09-04 07:08] LABS: APTT (PATIENT) 28.4 SEC (24.3-30.1); INTERNATIONAL NORMALIZED RATIO 0.9 RATIO; PROTHROMBIN TIME - PATIENT 9.9 SEC (9.8-11.6)
[2017-09-04 07:18] LABS: BICARBONATE 26.6 MEQ/L (21.0-32.0); POTASSIUM 4.3 MEQ/L (3.5-5.1)
[2017-09-04] MEDS ORDERED: LIDOCAINE HCL 2% 50 ML VIAL ONE (08:01)
[2017-09-04] MEDS ORDERED: VANCOMYCIN 500 MG VIAL ONE (08:01)
--- NOTE | 2017-09-04 09:09 | CATHPROC ---
[employer] HIS Report Study Information Study Number Admission Scheduled Start Study Start [id number] Sep 04 2017 6:03AM 09/04/2017 Sep 04 2017 7:09AM [place] Service Cardiac Pacer/ICD Admit Source Facility Department Other [facility] - Radiation Engineer Physician and Clinical Staff Initial Reji Bellamy Lining Cutter Shanique Baugh RCIS Lining Cutter Patrick Lazaro,RT(R) Other Anesthesia, MANAGER STRATEGY Recorder Jennifer Jiménez,MARINE Recorder Gabrielle Beaulieu RN Scrub Jessica Hurd,ELECTRIC SEALING MACHINE OPERATOR TECH2 Procedures Performed Procedure Lead Insertion Equipment Time Business Technology Analyst Description Size Mfg Part Number Used/Scraped 08:35 BIOTRONIK LEAD, SOLIA 60 PRO MRI * [id number] Used 08:38 BIOTRONIK LEAD, SOLIA 60 53 PRO MRI * [id number] Used PACEMAKER, ETRINSA 8 DR-T 08:42 BIOTRONIK DDDDR [id number] Used (BULK) DERMABOND, ADHESIVE SKIN [id number] 07:20 CORDIS/PACER * Used GLUE MINI *[id number]-1103 07:20 MEDLINE INDUSTRIES SUTURE, STRIP PLUS 1/2" * Used *[id number] 07:20 MEDLINE PACER MANCERA, LIMB * 2530 *[id number] Used [id number] 07:20 [employer] PACER PACK, PACER CUSTOM * Used *[id number] 08:13 fitkit PACER SAFE SHEATH, FR7, 13CM FR 7 [id number] Used 08:13 fitkit PACER SAFE SHEATH, FR7, 13CM FR 7 CLS-1007 Used 08:11 Needle Sponge Count 2 22 Used 08:11 Needle Sponge Count 2 2 Used 08:11 Needle Sponge Count 20 200 Used 09:07 Needle Sponge Count 3 3 Used 09:07 Needle Sponge Count 3 3 Used SUTURE, 0 ETHIBOND [CT1] (CX21D), 8pk SUTURE, 2-0 VICRYL [CT1] ([id number]) SUTURE, 2-0 VICRYL [CT1] ([id number]) [id number] 07:20 [employer],WARM AIR CCL * Used *[id number] [facility] PAD, ELECTROSURGICAL 07:20 * [id number] *[id number] Used SURGICAL GROUNDING ORANGE [id number] 07:20 [employer] ALESHIA. / * Used *[id number] Equipment Model, Serial, Lot Number and Expiration Data Description Model Number Serial Number Lot Number Expiration Date LEAD, SOLIA 60 PRO MRI [id number] 07-15-2019 LEAD, SOLIA 60 53 PRO MRI 004801 [id number] 06-15-2019 PACEMAKER, ETRINSA 8 JONEL [id number] 05-15-2018 (BULK) History: Allergies Allergy Reaction NKDA No Known Allergies History: Risk Factors Hypertension Previous PA Yes No Prior PCI Prior CABG No No Cerebrovascular Peripheral Artery Chronic Lung On Dialysis Diabetes Disease Disease Disease No No No No No Labs Hgb (g/dl) Hct (%) RBC (MIL/MM3) WBC (l/cumm) Platelets (thousands) 11.60-17.00 35.00-51.00 4.00-5.90 4.00-11.00 150.00-450.00 14.0 42 4.3 3.7 144 Glucose (mg/dl) BUN (mg/dl) Creatinine (mg/dl) BUN:Creatinine (1:x) 74.00-106.00 7.00-18.00 0.50-1.30 10.00-20.00 89 22 1.3 16.9 Na (meq/l) K (meq/l) Cl (meq/l) CO2 (mmol/L) Ca (mg/dl) 136.00-145.00 3.50-5.10 98.00-107.00 21.00-32.00 8.50-10.10 140 4.3 107 26.6 8.2 PT (sec) PTT (sec) INR (PTT:PT) 9.80-11.60 24.30-30.10 0.90-1.10 9.9 28.4 0.9 Medication Medication Total Dose (Bolus/Oral) Medication Total Dosage/Unit 2% XYLOCAINE 100 mL Medications (Bolus/Oral) Medication Time Given Dosage/Unit Administered By Reason 2% XYLOCAINE 09/04/2017 8:29:28 AM 50 mL Reji Cruz 50 mL 2% XYLOCAINE given in lab by in Left upper chest via Subcutaneous. Ordered by Yaya Cruz. 2% XYLOCAINE 09/04/2017 8:57:58 AM 50 mL Reji Cruz 50 mL 2% XYLOCAINE given in lab by in Left lower chest via Subcutaneous. Ordered by Yaya Cruz Medication (Drip) Medication Time Given Dosage/Unit Concentration/Unit Diluent (ml) Solution ANCEF 09/04/2017 7:53:33 AM 2 g 2 g ANCEF given in lab by Anesthesia, MANAGER STRATEGY via Peripheral IV. Ordered by Reji Cruz. Reason: As pe r physicians verbal order. VANCOMYCIN DRIP 09/04/2017 7:53:00 AM 1 g 1 g VANCOMYCIN DRIP given in lab by Anesthesia, MANAGER STRATEGY via Peripheral IV. Ordered by Reji Curz. Lamar son: As per physicians verbal order. Initial Case Assessment Cardiovascular HR Rhythm NIBP Chest Pain 61 sr 128/77 0 Edema Present Skin color Skin None Normal Warm Dry Circulatory - Right Pulses Radial 1 Scale (0,1,2,3,4,d) Circulatory - Left Pulses Radial 1 Scale (0,1,2,3,4,d) Circulatory - Lower Extremities Color Lower Right Color Lower Left Normal Normal Neurological State Oriented to time-place- Alert Moves all extremities person Respiration - General Respiration Rate SpO2 (%) O2 (lpm) (B/min) 20 94 4 Final Case Assessment Cardiovascular HR Rhythm NIBP Chest Pain 63 sr 103/69 0 Edema Present Skin color Skin None Normal Warm Dry Circulatory - Right Pulses Radial 1 Scale (0,1,2,3,4,d) Circulatory - Left Pulses Radial 1 Scale (0,1,2,3,4,d) Neurological State Oriented to time-place- Lethargic Moves all extremities person Respiration - General Respiration Rate SpO2 (%) O2 (lpm) (B/min) 12 96 4 Chronological Log Time Study Chronological Log 7:46:31 Patient arrived via Bed. 7:46:39 Patient Name, D.O.B, / Armband Verified By R.N. 7:47:13 Consent signed by the physician and the patient and verified by the Radiation Engineer staff. 7:47:16 Pre-op and post- op instructions given; patient acknowledges understanding of instructions. 7:47:18 Verbal Stimulation=2 Physical Stimulation=2 Airway=2 Respiration=2 TOTAL=8. (0=absent, 1=li mited, 2=present) 7:47:47 Anesthesia at bedside. Assumes care of patient. Ronald 7:48:11 Patient has been NPO for More than 6Hrs. 7:48:14 Skin Breakdown- none per pt 7:48:21 Patient Warmer Placed on the Table. 7:48:23 Disposable Defibrillator Pads Placed On Patient. 7:48:24 Steph Prominences Protected 7:48:29 A # 20 IV was noted in the Hand (left). Grade = 0. 0.9%nacl @ kvo. 7:48:31 A # 20 IV was noted in the Antecubital (right). Grade = 0. 0.9% nacl @ kvo. 7:49:45 History and physical on the chart or being dictated. 1 g VANCOMYCIN DRIP given in lab by Anesthesia, MANAGER STRATEGY via Peripheral IV. Ordered by Zeeshan Cruz Reason: As per 7:53:00 physicians verbal order. 2 g ANCEF given in lab by Anesthesia, MANAGER STRATEGY via Peripheral IV. Ordered by Reji Cruz. Reason: As per physicians 7:53:33 verbal order. Assessment: Initial Case, HR=61 BPM, Rhythm=sr, OVRK=808/77 mmhg, Chest Pain=0, Edema=None, [place] r=Normal, Skin = Warm, Dry Right Pulses: Radial=1 Left Pulses: Radial=1 8:05:23 Lower Right Extremities: Color=Normal Lower Left Extremities: Color=Normal Neurological: State=Alert, Ox3, JOSEPH Respiration: Resp=20 B/min, SpO2=94 %, O2=4 lpm 8:08:19 Reference ECG taken 8:08:58 Table restraints applied according to hospital policy 8:09:12 Upper Chest Prepped Times Two. 8:09:55 Bovie ground pad applied to: right thigh 8:10:10 2% CHLORHEXIDINE GLUCONATE WASH AND NASAL SWIPE DONE PRIOR TO PROCEDURE. First Sponge And Instrument Count Done by Jessica Hurd, ELECTRIC SEALING MACHINE OPERATOR TECH2. 8:10:12 Hypo's: 2, Sponges: 20, Bovie/scratch: 2 Sutures: 10, Blades: 1, Instruments: 26, Syveck Patches: 0 verified w DB 8:13:32 paged 8:22:00 MD arrived. Time Out. Correct patient, procedure, procedure equipment, site and side verified with physician present. Time 8:26:26 concurred by MD, individual staff and MANAGER STRATEGY. Time Out #2 - Consents verified, patient in correct position, all results are labled and display ed, safety precautions 8:26:53 taken, antibiotics administered. Time out concurred by MD, individual staff and MANAGER STRATEGY in procedur e 8:26:55 Case Start 8:29:28 50 mL 2% XYLOCAINE given in lab by in Left upper chest via Subcutaneous. Ordered by Reji Cruz. 8:30:23 Vascular access was obtained in the Subclav. Vein (Lft. 8:31:02 Surgical Incision Made. 8:31:06 A pocket was created at the L Upper Chest. 8:33:05 A SAFE SHEATH, FR7, 13CM FR 7 was advanced into the Subclav. Vein (Lft using the Percutaneou s technique. 8:35:31 A LEAD, SOLIA 60 PRO MRI * was inserted and positioned in the RV. 8:35:43 Lead placement verified under fluoroscopy 8:35:56 The RV lead impedance and threshold being tested. 8:36:16 The RV lead was sutured to the fascia. 8:37:25 Vascular access was obtained in the Subclav. Vein (Left.) 8:37:33 A SAFE SHEATH, FR7, 13CM FR 7 was advanced into the Fem Art (right) using the Percutaneous t echnique. 8:39:09 A LEAD, SOLIA 60 53 PRO MRI * was inserted and positioned in the RA. 8:39:19 Lead placement verified under fluoroscopy 8:39:23 The Atrial lead impedance and threshold is being tested. 8:41:14 The Atrial lead was sutured to the fascia. 8:42:00 Pocket flushed with antibiotic solution 8:43:04 A PACEMAKER, ETRINSA 8 DR-T (BULK) DDDDR was connected and placed in the pocket. Second Sponge And Instrument Count Done by Jessica Hurd, ELECTRIC SEALING MACHINE OPERATOR TECH2. 8:54:04 Hypo's: 3, Sponges: 20, Bovie/scratch: 2 Sutures: 10, Blades: 1, Instruments: 26, Syveck Patches: 0 verified w DB 8:57:34 The pocket was closed. 8:57:58 50 mL 2% XYLOCAINE given in lab by in Left lower chest via Subcutaneous. Ordered by Reji Cruz. 8:58:37 Surgical Incision Made. 8:59:43 A device was explanted: Loop recorder 9:00:58 Steri-strips and a sterile dressing applied to both sites. 9:01:18 Implant Procedure was performed. 9:01:31 A PPM Implant . (Dual) Final Sponge And Instrument Count Done by Jessica Hurd, ELECTRIC SEALING MACHINE OPERATOR TECH2. 9:02:07 Hypo's: 3, Sponges: 20, Bovie/scratch: 2 Sutures: 10, Blades: 1, Instruments: 26, Syveck Patches: 0 verified w DB 9:02:58 Bedside Report will be given. DOCU notified spoke with Aure. 9:04:14 A sling will be placed on the affected arm. Assessment: Final Case, HR=63 BPM, Rhythm=sr, NTIV=408/69 mmhg, Chest Pain=0, Edema=None, [place] r=Normal, Skin = Warm, Dry Right Pulses: Radial=1 9:04:26 Left Pulses: Radial=1 Neurological: State=Lethargic, Ox3, JOSEPH Respiration: Resp=12 B/min, SpO2=96 %, O2=4 lpm 9:05:52 Case End 9:09:14 Implantable Device card placed in patient's chart. 9:09:20 Cine recording checked. 9:09:24 No case complications noted. 9:14:59 Patient moved to [facility] End Study - Contrast Media Used In Study Contrast Total Opened (mL) Total Used (mL) Total Wasted (mL) Unspecified 0 0 0 End Study - Maximum Contrast Load Max Contrast Load (mL) 414.2 End Study - Radiation Exposure Fluoro Time (minutes) 2.8 End Study - Patient Disposition Complications Transferred To Interventional Outcome No Telemetry Bed successful
--- NOTE | 2017-09-04 09:14 | PD.CARD ---
DUAL PPM IMPLANTATION PROCEDURE DATE: Sep 04, 2017 DUAL PPM IMPLANTATION PROCEDURE: Dual chamber permanent pacemaker implantation and loop recorder removal. INDICATIONS FOR PROCEDURE: Mr. Olson is a 57 -year-old male with multiple episodes of near syncope, severe bradycardia recorded on loop recorder, on no negative chronotropic medications who undergo pacer insertion and loop removal. The risks, the nature and the benefit of the procedure were clearly stated to him . The risks include pneumothorax, cardiac perforation, stroke and even . He understood and agreed to proceed. PROCEDURE After written informed consent was obtained, the patient was transferred to the EP lab where he was prepped and draped in the usual sterile fashion. Conscious sedation was initiated and maintained throughout the procedure by the anesthesiologist. Once sedation was verified, the left infraclavicular area was with 2% Xylocaine. Using modified Seldinger technique, the left subclavian vein was cannulated on two occasions and two guidewires were advanced. Then, using a #11 blade scalpel, a 2 cm was made two fingerbreadths below the left clavicle. This incision was then taken down through the deep fascial layer using Bovie cautery and blunt dissection. Into the inferomedial direction, device pocket was dissected, then the wire was dissected into the pocket. A 2- 0 Vicryl suture was placed around the wire to prevent backbleeding. At this point, over the lateral wire, an 8-Belizean dilator and introducer was advanced. As the dilator and wire were removed, an active fixation right ventricular pacing and sensing lead was advanced. After adequate pacing and sensing thresholds were obtained, the lead was secured in the pocket using 2-0 Ethibond suture. Then, over the remaining wire, an 8-Belizean dilator and introducer was advanced. As the dilator and wire were removed, an active fixation right atrial pacing and sensing lead was advanced. After adequate pacing and sensing thresholds were obtained, the lead was secured into the pocket using 2-0 Ethibond suture. At that point, the pocket was copiously irrigated using antibiotic solution. This was connected to the generator and placed into the pocket. I did proceed with wound closure. The deep fascial layer was approximated using 2-0 Vicryl suture in a continuous fashion. The subcutaneous layer was approximated with 2-0 Vicryl suture in a continuous fashion. The subcuticular layer was approximated with 2-0 Vicryl suture in a continuous fashion. Dermabond adhesive was applied to the wound followed by sterile pressure dressing. At this point, I did proceed with loop recorder removal. The area at the left parasternal area was anesthetized with 2% Xylocaine. Using a # 11 blade, a less than a cm incision was made. The incision was taken into the deep facial layer using blunt dissection. Once observed, the loop was removed from the pocket. I did proceed with wound closure using Dermabond and steri strips. No incident reported. There was no complication. The patient tolerated procedure. Blood loss minimal. Explanted Hardware The explanted loop is a Impervatronic. Please refer to previous report. IMPLANTED HARDWARE The permanent pacemaker is a [employer]. Model # 556183 serial number [id number]. The right atrial pacing and sensing lead is a Biotronik model number 707384, serial number [id number]. The right ventricular pacing and sensing lead is a Biotroni model number 148944 , serial number [id number]. THRESHOLDS The right atrial pacing threshold in the bipolar mode was 1.4 V at 0.5 milliseconds, lead impedance 580 ohms and P-wave at 2.1 millivolts. The right ventricular pacing threshold in the bipolar mode was 0.8V @ 0.5 milliseconds, lead impedance 680 ohms and R-wave at the 8.1 millivolts. SETTINGS The device was set in the DDD 60, upper limit 140 beats per minute. Hysteresis and mode switch are on. CONCLUSIONS: Successful permanent pacemaker implantation and loop recorder removal. COMMENT AND RECOMMENDATION The patient will be transferred to the telemetry unit. He will be observed. When stable, he can be discharged home. Reji Cruz MD Sep 04, 2017 09:14
[2017-09-04] MEDS ORDERED: ONDANSETRON HCL 4 MG/2 ML VIAL IV PUSH PRN (09:15)
[2017-09-04] MEDS ORDERED: ACETAMINOPHEN/CODEINE 300 MG/30 MG TAB PO PRN ×2 (09:15)
[2017-09-04] MEDS ORDERED: MAGNESIUM HYDROXIDE SUSP 30 ML CUP PO PRN (09:15)
[2017-09-04] MEDS ORDERED: SODIUM CHLORIDE 0.9% FLUSH 10 ML FLUSH IV FLUSH PRN (09:15)
[2017-09-04] MEDS ORDERED: TEMAZEPAM 15 MG CAP PO PRN (09:15)
[2017-09-04] MEDS ORDERED: NON-FORMULARY DRUG (Cobalamine Combinations (Vitamin B12-Folic Acid) 1 TAB) PO SCH (09:30)
[2017-09-04] MEDS ORDERED: NON-FORMULARY DRUG (Multiple Vitamin 1 TAB) PO SCH (09:30)
[2017-09-04] MEDS ORDERED: NON-FORMULARY DRUG (Glucosamine-Chondroitin 1 TAB) PO SCH (09:30)
[2017-09-04] MEDS ORDERED: DULoxetine HCl DR 60 MG CAP PO SCH (11:00)
[2017-09-04] MEDS ORDERED: LISINOPRIL 5 MG TAB PO SCH (11:00)
[2017-09-04] MEDS ORDERED: MULTIVITAMIN TAB PO SCH (11:00)
--- NOTE | 2017-09-04 11:36 | RADRPT ---
EXAM DATE/TIME: 09/04/2017 11:11 [place] COMPARISON: CHEST SINGLE AP, April 07, 2017, 14:59. INDICATIONS : Post pacemaker placement. MEDICAL HISTORY : Hypertension. SURGICAL HISTORY : Left knee. Cervical laminectomy. ENCOUNTER: Initial ACUITY: 1 day PAIN SCORE: 0/10 LOCATION: Bilateral chest FINDINGS: A single view of the chest demonstrates the lungs to be symmetrically aerated without evidence of mas s, infiltrate or effusion. No pneumothorax. Left-sided pacing device is new. Leads terminate in the r egion of the right atrium and right ventricle respectively. Heart mildly enlarged. Osseous structures are intact. CONCLUSION: No pneumothorax following left-sided pacing device. Jaswinder Patel Jr., MD on September 04, 2017 at 11:33 Board Certified Radiologist. This report was verified electronically.
--- NOTE | 2017-09-04 15:31 | EKG ---
Date Performed: 09/04/2017 Time Performed: 06:54:50 PTAGE: 57 years EKG: Sinus rhythm . Compared to prior tracing no significant change Normal ECG PREVIOUS TRACING : 04/08/2017 03.48 DOCTOR: Adolfo Romero Interpretating Date/Time 09/04/2017 15:30:18
[2017-09-04] MEDS ORDERED: HYDR-3366 PO (18:04)
[2017-09-04] MEDS ORDERED: CEPH-460 PO (18:04)
[2017-09-04] MEDS ORDERED: SULFAMETHOXAZOLE-TRIMETHOPRIM DS 800-160 MG TAB PO SCH (21:00)
[2017-09-04] MEDS ORDERED: SODIUM CHLORIDE 0.9% FLUSH 10 ML FLUSH IV FLUSH SCH (21:00)
== END 2017-09-04 18:35 | disposition home or self-care (01) ==
LOC: HDIC 06:03 → HCAT 06:03 → HCPC 10:04 → HCAT 18:35
PROVIDERS: ATTEND Internal Medicine Interventional Cardiology
DX: I49.5 Sick sinus syndrome (principal); I11.9 Hypertensive heart disease without heart failure; Z98.1 Arthrodesis status; E83.51 Hypocalcemia
CPT/HCPCS: 00530; 33208; 33284; 71010; 80048; 85025; 85610; 85730; 93005; C1779; C1785; J0690; J3370; J7050